=== PATIENT | male | born 1965 | race Caucasian/White ===

== ENCOUNTER 2024-07-14 18:29 | Inpatient (IN) | payer MEDICARE, SELFPAY ==
[2024-07-14] VITALS (12 sets, daily range): BP systolic 93–140; BP diastolic 55–73; PULSE 77–100; RESP 16–21; TEMP 36.9–38.2; O2SAT 85–98
--- NOTE | ~2024-07-14 | XR_ITS ---
CHEST RADIOGRAPH CLINICAL HISTORY: sob . COMPARISON: None available TECHNIQUE: Single portable view of the chest. FINDINGS The cardiomediastinal silhouette is unremarkable. Increased interstitial markings are identified bilaterally, findings suggesting mild pulmonary vascul ar congestion. The remainder of the lungs are clear. IMPRESSION: Mild pulmonary vascular congestion without focal infiltrate or effusion. Reviewed, dictated and finalized at location A.
--- NOTE | ~2024-07-14 | CT_ITS ---
CT chest abdomen pelvis w con Ordering provider: Bony Barbosa MD History: 59 years Male with . Sepsis, Hypoxic resp failure . Comparison: None. Technique: CT chest with IV contrast. CT abdomen and pelvis CT abdomen and pelvis with IV and with or al contrast. Radiation reduction technique utilized.The dose-length product was 2348.8 mGy-cm. 100 mL Omnipaque 350 was given IV. FINDINGS: CHEST: --VISUALIZED THORACIC INLET: Normal. --MEDIASTINUM: Aorta/coronary arteries: Mild atheromatous disease. Heart/other: The heart is not enlarged. Lymph nodes: No mediastinal or hilar adenopathy. Paratracheal lymph node is seen measuring 1.5 cm. Sm all precarinal lymph nodes are noted. Calcified right hilar lymph nodes. Narrowing of the tracheobronchial tree is seen suggestive of tracheobronchomalacia. Tracheobronchomal acia. --LUNGS: Left basilar pneumonia is noted with minimal effusion. Minimal infiltrate in the right lung base posteriorly. No pulmonary nodules or masses. No effusions. No pneumothorax. --MUSCULOSKELETAL: Soft tissues: Soft tissue density is seen medial to the left humerus shaft measuring 1.6 x 5.8 cm. Shauna int effusion is possible. Further evaluation advised. Otherwise, The superficial soft tissues are nor mal. Bones: Age appropriate degenerative changes of the spine. No suspicious bony lytic or sclerotic lesio ns. Bilateral sacroiliitis. ABDOMEN/PELVIS: --MUSCULOSKELETAL: Bones: Age appropriate degenerative changes of the spine. No suspicious bony lytic or sclerotic lesio ns. Left sacroiliitis. Superficial soft tissues: Right fat-containing inguinal hernia. Otherwise, The superficial soft tissu es are normal. --UPPER ABDOMINAL ORGANS: Liver: Normal. Gallbladder: Contracted. Spleen: Normal. Benign calcifications. Stomach/duodenum: Normal. Pancreas: Atrophic. Adrenals: Normal. Kidneys: Normal. --PELVIC ORGANS: The bladder is normal. No bladder stones. --BOWEL AND MESENTERY: Colon: No evidence of diverticulitis. Fecal material is seen in the right side of the colon.. Normal appendix. Small Bowel: Normal. No obstruction. Peritoneum/mesentery: No free air or free fluid. No mesenteric lymphadenopathy. --RETROPERITONEUM: Mild atheromatous disease of the abdominal aorta. No retroperitoneal lymphadenop athy. IMPRESSION: CHEST: 1. No evidence of pulmonary embolism. 2. Left basilar pneumonia. Left minimal pleural effusion. Minimal right base pneumonia. 3. Slightly enlarged lymph nodes in the paratracheal and precarinal area. 4. Tracheobronchomalacia. ABDOMEN/PELVIS: 1. No evidence of appendicitis, diverticulitis or intestinal obstruction. 2. Atrophic pancreas. 3. Right inguinal hernia with fat content. Reviewed, dictated and finalized at location A. IMPRESSION: CHEST: 1. No evidence of pulmonary embolism. 2. Left basilar pneumonia. Left minimal pleural effusion. Minimal right base p neumonia. 3. Slightly enlarged lymph nodes in the paratracheal and precarinal area. 4. Tracheobronchomalacia. ABDOMEN/PELVIS: 1. No evidence of appendicitis, diverticulitis or intestinal obstruction. 2. Atrophic pancreas. 3. Right inguinal hernia with fat content.
--- NOTE | ~2024-07-14 | XR_ITS ---
EXAMINATION: XR chest 1V portable Exam Date/Time: 07/15/2024 17:45 CDT HISTORY: Witnessed choking episode Comparison: 07/14/2024, x-ray chest and CT cap. RESULT: Lines, tubes, and devices: None. Lungs and pleura: Slightly low volumes with crowding. Persistent patchy airspace disease in the left mid and lower lung and to a much lesser extent in the medial right lower lung. Cardiomediastinal silhouette: Stable. Other: No acute osseous or upper abdominal finding. IMPRESSION: Unchanged pulmonary opacities, likely representing bilateral pneumonia, worse on the left, with a pos sible component of aspiration. Reviewed, dictated and finalized at location K. IMPRESSION: Unchanged pulmonary opacities, likely representing bilateral pneumonia, worse o n the left, with a possible component of aspiration.
--- NOTE | ~2024-07-14 | XR_ITS ---
Portable chest x-ray Comparison: 07/15/2024 Clinical History: Pneumonia Findings: There is central congestive change and probable mild bibasilar pulmonary edema, or possibl y pneumonia. Cardiomediastinal silhouette is stable. Bones and soft tissues are unremarkable. Impression: Probable mild bibasilar pulmonary edema. Correlate clinically for pneumonia. Reviewed, dictated and finalized at [facility]. Impression: Probable mild bibasilar pulmonary edema. Correlate clinically for pneumonia.
--- NOTE | 2024-07-14 18:41 | ECG_ITS ---
Test Date: 2024-07-14 19:55:21 Measurements Intervals [place] Rate: 91 P: 60 [place]: 142 QRS: 59 QRSD: 86 T: 52 QT: 335 QTc: 412 Interpretive Statements SINUS RHYTHM NONSPECIFIC T-WAVE ABNORMALITY Electronically Signed On 07-16-2024 13:53:40 CDT by Ishan Araiza D.O
--- NOTE | 2024-07-14 18:44 | ED.SOB ---
HPI - SOB/Dyspnea General Chief Complaint: Shortness of Breath/Dyspnea <Joao Peralta MD - Last Filed: 07/14/24 18:47> Stated Complaint: dyspnea <Joao Peralta MD - Last Filed: 07/14/24 18:47> Time Seen by Provider: 07/14/24 18:38 <Joao Peralta MD - Last Filed: 07/14/24 18:47> Source: patient and EMS <Joao Peralta MD - Last Filed: 07/14/24 18:47> Mode of arrival: EMS <Joao Peralta MD - Last Filed: 07/14/24 18:47> Limitations: no limitations <Joao Peralta MD - Last Filed: 07/14/24 18:47> History of Present Illness HPI Narrative: 59-year-old with the history Parkinson's, schizophrenia, hypertension, morbid obesity was brought in from nursing my office with a complaint of shortness of for past 2 days. Patient states he is feeling much better upon arrival to the ER. I spoke with EMS he was having bilateral using was given a neb treatment. Patient denies any fever chills. Has cough is a little fluid no history of nausea or vomiting. <Joao Peralta MD - Last Filed: 07/14/24 18:47> MD elicited complaint: shortness of breath and cough <Joao Peralta MD - Last Filed: 07/14/24 18:47> Onset (ago): day(s) (2) <Joao Peralta MD - Last Filed: 07/14/24 18:47> Timing: constant <Joao Peralta MD - Last Filed: 07/14/24 18:47> Severity: moderate <Joao Peralta MD - Last Filed: 07/14/24 18:47> Exacerbating factors: nothing <Joao Peralta MD - Last Filed: 07/14/24 18:47> Relieving factors: oxygen <Joao Peralta MD - Last Filed: 07/14/24 18:47> Associated symptoms: denies other symptoms <Joao Peralta MD - Last Filed: 07/14/24 18:47> Related Data Allergies/Adverse Reactions: Allergies Allergy/AdvReac Type Severity Reaction Status Date / Time hydroxyzine Allergy RASH Verified 07/14/24 18:59 <Joao Peralta MD - Last Filed: 07/14/24 18:47> Review of Systems Review of Systems: All systems reviewed & are unremarkable except as noted in HPI and below <Joao Peralta MD - Last Filed: 07/14/24 18:47> Constitutional: Constitutional: Reports no additional constitutional complaints <Joao Peralta MD - Last Filed: 07/14/24 18:47> Eyes: Eyes: Reports no additional eye complaints <Joao Peralta MD - Last Filed: 07/14/24 18:47> ENT: Reports system reviewed and no additional complaints, except as documented <Joao Peralta MD - Last Filed: 07/14/24 18:47> Cardiovascular: Cardiovascular: Reports no additional cardiovascular complaints <Joao Peralta MD - Last Filed: 07/14/24 18:47> Respiratory: Respiratory: Reports as per HPI <Joao Peralta MD - Last Filed: 07/14/24 18:47> Gastrointestinal: Gastrointestinal: Reports no additional gastrointestinal complaints <Joao Peralta MD - Last Filed: 07/14/24 18:47> Genitourinary: Genitourinary: Reports no additional male genitourinary complaints <Joao Peralta MD - Last Filed: 07/14/24 18:47> Musculoskeletal: Musculoskeletal: Reports no additional musculoskeletal complaints <Joao Peralta MD - Last Filed: 07/14/24 18:47> Neurologic: Reports system reviewed and no additional complaints, except as documented <Joao Peralta MD - Last Filed: 07/14/24 18:47> Exam Narrative: GENERAL: Well-appearing, obese and in no acute distress. HEAD: Normocephalic, atraumatic. EYES: PERRLA and EOMI. ENT: Nares clear, no rhinorrhea or epistaxis. Mucous membranes moist. NECK: Supple. CHEST: Bilateral coarse breath sounds. No respiratory distress. HEART: Regular rate and rhythm. No murmur heard. Normal peripheral pulses. ABDOMEN: Soft, nontender, nondistended, normal active bowel sounds. EXTREMITIES: Normal range of motion. No edema. SKIN: Warm, dry, no rash. NEURO: No focal deficits. Alert and oriented PSYCH: Normal mood and affect. <Joao Peralta MD - Last Filed: 07/14/24 18:47> Course Course Emergency Course: ZYCH 0000: Patient signed out completion of his workup. After arrival patient developed a fever his blood pressures became soft. 30 cc/kilogram bolus and started on broad-spectrum antibiotics was workup was being completed. Workup significant for pneumonia. Patient was falling asleep and when every fell asleep he was desaturating despite 6lpm NC. Possibly combination of pneumonia/ obstructive sleep apnea. He was placed on BiPAP. Patient will be admitted hospital for further management. <Bony Barbosa MD - Last Filed: 07/15/24 00:04> Vital Signs Vital signs: Vital Signs Temperature 99.6 F 07/14/24 18:37 Pulse Rate 100 07/14/24 18:37 Respiratory Rate 21 H 07/14/24 18:37 Blood Pressure 140/73 07/14/24 18:37 Pulse Oximetry 85 L 07/14/24 18:37 Oxygen Delivery Room Air 07/14/24 18:37 Temperature 98.4 F 07/14/24 22:23 Pulse Rate 77 07/14/24 22:23 Respiratory Rate 16 07/14/24 23:51 Blood Pressure 119/72 07/14/24 22:23 Pulse Oximetry 96 07/14/24 23:51 Oxygen Delivery BiPAP 07/14/24 23:51 Oxygen Flow Rate 6 07/14/24 19:29 Fraction of Inspired Oxygen 44 07/14/24 21:23 <Joao Peralta MD - Last Filed: 07/14/24 18:47> Vital Signs Temperature 99.6 F 07/14/24 18:37 Pulse Rate 100 07/14/24 18:37 Respiratory Rate 21 H 07/14/24 18:37 Blood Pressure 140/73 07/14/24 18:37 Pulse Oximetry 85 L 07/14/24 18:37 Oxygen Delivery Room Air 07/14/24 18:37 Temperature 98.4 F 07/14/24 22:23 Pulse Rate 77 07/14/24 22:23 Respiratory Rate 16 07/14/24 23:51 Blood Pressure 119/72 07/14/24 22:23 Pulse Oximetry 96 07/14/24 23:51 Oxygen Delivery BiPAP 07/14/24 23:51 Oxygen Flow Rate 6 07/14/24 19:29 Fraction of Inspired Oxygen 44 07/14/24 21:23 <Bony Barbosa MD - Last Filed: 07/15/24 00:04> MDM - SOB/Dyspnea Lab Data Result diagrams: 07/14/24 19:44 07/14/24 19:44 <Joao Peralta MD - Last Filed: 07/14/24 18:47> Labs: Lab Results 07/14/24 07/14/24 Range/Units 19:44 20:02 WBC 22.7 H (4.5-10.0) K/mm3 RBC 3.21 L (4.6-6.20) M/mm3 Hgb 9.8 L (14.0-18.0) g/dL Hct 31.2 L (42.0-52.0) % MCV 97.2 (80-100) fl MCH 30.5 (26-34) pg MCHC 31.4 L (32-36) g/dl RDW 12.9 (11.5-14.5) % Plt Count 216 (150-375) k/mm3 MPV 12.4 H (7.4-10.4) fl Immature Gran % (Auto) Not Reportable Neut % (Auto) Not Reportable Lymph % (Auto) Not Reportable [place] % (Auto) Not Reportable Eos % (Auto) Not Reportable Baso % (Auto) Not Reportable Lymph # (Auto) Not Reportable [place] # (Auto) Not Reportable Eos # (Auto) Not Reportable Baso # (Auto) Not Reportable Abs Immat Gran (auto) Not Reportable Absolute Neuts (auto) Not Reportable Absolute Nucleated RBC Not Reportable Total Counted 100 Neutrophils % (Manual) 70 (46-73) % Band Neutrophils % 11 H (0-6) % Lymphocytes % (Manual) 3.0 L (18-44) % Monocytes % (Manual) 14 H (3-9) % Eosinophils % (Manual) 2 (0-4) % Nucleated RBC % Not Reportable Abs Neuts (Manual) 18.38 H (1.3-6.7) K/mm3 Abs Lymphs (Manual) 0.68 L (1.1-4.5) K/mm3 Abs Monocytes (Manual) 3.17 H (0.1-0.90) K/mm3 Absolute Eos (Manual) 0.45 (0.02-0.50) K/mm3 Platelet Estimate Adequate (Adequate) Hypochromasia 1+ Schistocytes None seen PT 14.8 H (11.1-14.7) Seconds INR 1.1 APTT 31.7 (22.3-36.8) Seconds Sodium 131 L (137-145) mmol/L Potassium 3.8 (3.4-5.0) mmol/L Chloride 94 L (98-107) mmol/L Carbon Dioxide 30 (22-30) mmol/L Anion Gap 7 (4-12) mmol/L BUN 22 H (9-20) mg/dL Creatinine 1.39 H (0.7-1.3) mg/dL Estim Creat Clear Calc Not Reportable Estimated GFR 52 L (59 - ) Glucose 163 H (65-110) mg/dL Lactic Acid 0.9 (0.7-2.0) mmol/L Calcium 8.1 L (8.4-10.2) mg/dL Total Bilirubin 0.3 (0.2-1.3) mg/dL AST 24 (17-59) U/L ALT 31 (6-50) U/L Alkaline Phosphatase 92 (38-126) U/L Troponin I < 0.012 (0.000-0.034) ng/mL NT-Pro-B Natriuret Pep 542 H (19.9-100) pg/mL Total Protein 7.0 (6.3-8.2) g/dL Albumin 3.3 L (3.5-5.1) g/dL Nasal MRSA (PCR) Not detected (NOT DETECTE) Influenza A (RT-PCR) Negative (Negative) Influenza B (RT-PCR) Negative (Negative) RSV (RT-PCR) Negative (Negative) SARS-CoV-2 RNA (RT-PCR) Negative Negative (Negative) <Joao Peralta MD - Last Filed: 07/14/24 18:47> Lab Results 07/14/24 07/14/24 Range/Units 19:44 20:02 WBC 22.7 H (4.5-10.0) K/mm3 RBC 3.21 L (4.6-6.20) M/mm3 Hgb 9.8 L (14.0-18.0) g/dL Hct 31.2 L (42.0-52.0) % MCV 97.2 (80-100) fl MCH 30.5 (26-34) pg MCHC 31.4 L (32-36) g/dl RDW 12.9 (11.5-14.5) % Plt Count 216 (150-375) k/mm3 MPV 12.4 H (7.4-10.4) fl Immature Gran % (Auto) Not Reportable Neut % (Auto) Not Reportable Lymph % (Auto) Not Reportable [place] % (Auto) Not Reportable Eos % (Auto) Not Reportable Baso % (Auto) Not Reportable Lymph # (Auto) Not Reportable [place] # (Auto) Not Reportable Eos # (Auto) Not Reportable Baso # (Auto) Not Reportable Abs Immat Gran (auto) Not Reportable Absolute Neuts (auto) Not Reportable Absolute Nucleated RBC Not Reportable Total Counted 100 Neutrophils % (Manual) 70 (46-73) % Band Neutrophils % 11 H (0-6) % Lymphocytes % (Manual) 3.0 L (18-44) % Monocytes % (Manual) 14 H (3-9) % Eosinophils % (Manual) 2 (0-4) % Nucleated RBC % Not Reportable Abs Neuts (Manual) 18.38 H (1.3-6.7) K/mm3 Abs Lymphs (Manual) 0.68 L (1.1-4.5) K/mm3 Abs Monocytes (Manual) 3.17 H (0.1-0.90) K/mm3 Absolute Eos (Manual) 0.45 (0.02-0.50) K/mm3 Platelet Estimate Adequate (Adequate) Hypochromasia 1+ Schistocytes None seen PT 14.8 H (11.1-14.7) Seconds INR 1.1 APTT 31.7 (22.3-36.8) Seconds Sodium 131 L (137-145) mmol/L Potassium 3.8 (3.4-5.0) mmol/L Chloride 94 L (98-107) mmol/L Carbon Dioxide 30 (22-30) mmol/L Anion Gap 7 (4-12) mmol/L BUN 22 H (9-20) mg/dL Creatinine 1.39 H (0.7-1.3) mg/dL Estim Creat Clear Calc Not Reportable Estimated GFR 52 L (59 - ) Glucose 163 H (65-110) mg/dL Lactic Acid 0.9 (0.7-2.0) mmol/L Calcium 8.1 L (8.4-10.2) mg/dL Total Bilirubin 0.3 (0.2-1.3) mg/dL AST 24 (17-59) U/L ALT 31 (6-50) U/L Alkaline Phosphatase 92 (38-126) U/L Troponin I < 0.012 (0.000-0.034) ng/mL NT-Pro-B Natriuret Pep 542 H (19.9-100) pg/mL Total Protein 7.0 (6.3-8.2) g/dL Albumin 3.3 L (3.5-5.1) g/dL Nasal MRSA (PCR) Not detected (NOT DETECTE) Influenza A (RT-PCR) Negative (Negative) Influenza B (RT-PCR) Negative (Negative) RSV (RT-PCR) Negative (Negative) SARS-CoV-2 RNA (RT-PCR) Negative Negative (Negative) <Bony Barbosa MD - Last Filed: 07/15/24 00:04> ABG Data ABG results: 07/14/24 18:52 Puncture Site Right brachial ABG pH 7.400 ABG pCO2 42.8 ABG pO2 68.3 L ABG PO2/FiO2 Ratio 1.71 ABG HCO3 25.9 ABG O2 Saturation 93.6 L ABG O2 Content 13.4 L ABG Base Excess 1.0 A-a Gradient 167.7 Oxyhemoglobin 93.0 Total Hemoglobin 10.2 L O2 Delivery Device Nasal cannula O2 Liters/Min 5.0 FiO2 40 <Joao Peralta MD - Last Filed: 07/14/24 18:47> 07/14/24 18:52 Puncture Site Right brachial ABG pH 7.400 ABG pCO2 42.8 ABG pO2 68.3 L ABG PO2/FiO2 Ratio 1.71 ABG HCO3 25.9 ABG O2 Saturation 93.6 L ABG O2 Content 13.4 L ABG Base Excess 1.0 A-a Gradient 167.7 Oxyhemoglobin 93.0 Total Hemoglobin 10.2 L O2 Delivery Device Nasal cannula O2 Liters/Min 5.0 FiO2 40 <Bony Barbosa MD - Last Filed: 07/15/24 00:04> Critical Care Time Critical Care Time Critical Care Time: Yes <Bony Barbosa MD - Last Filed: 07/15/24 00:04> Total Critical Care Time: 35 <Bony Barbosa MD - Last Filed: 07/15/24 00:04> Discharge Plan Discharge Clinical Impression: Pneumonia, Hypoxic respiratory failure <Joao Peralta MD - Last Filed: 07/14/24 18:47> Patient Disposition: Still a Patient <Joao Peralta MD - Last Filed: 07/14/24 18:47> Condition: Stable <Joao Peralta MD - Last Filed: 07/14/24 18:47> Patient Language: [place]e <Joao Peralta MD - Last Filed: 07/14/24 18:47> Follow-up/Referrals: Ankur,MD Shemar [Primary Care Provider] - <Joao Peralta MD - Last Filed: 07/14/24 18:47>
[2024-07-14 19:07] LABS: Alveolar/Arterial O2 Gradient 167.7 mmHg; Fractional Inspired Oxygen 40 %; HCO3 ABG 25.9 mEq/l (22.0-26.0); Oxygen Content ABG 13.4 %vol (16.0-22.0); Oxygen Saturation ABG 93.6 % (95.0-100.0); PCO2 ABG 42.8 mmHg (35.0-45.0); PO2 ABG 68.3 mmHg (80.0-100.0); PO2 FiO2 Ratio Arterial Blood 1.71 %; Total Hemoglobin 10.2 g/dL (12.0-18.0)
[2024-07-14 19:08] LABS: Device NASAL CANNULA; Site Drawn RIGHT BRACHIAL
--- OUTSIDE RECORDS SUMMARY | 2024-07-14 19:40 | XMS_ITS | Referral Summary ---
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 Name Role Phone Shemar Pascual MD Primary Care Provider [phone] Stephon Caputo MD Unavailable [phone] Allergies Active Allergy Reactions Criticality Noted Date Comments Hydroxyzine Other (See comments) Low 11/24/2022 Per mother causes patient to have tremors Medications acetaminophen (TYLENOL) 325 mg tabletIndications :Pain Take 1 tablet (325 mg total) by mouth as needed Active aspirin 81 mg chewable tabletIndications :Myocardial Reinfarction Prevention Take 1 tablet (81 mg total) by mouth every morning Active metoprolol XL (TOPROL-XL) 25 mg extended release tabletIndications :hypertension Take 1 tablet (25 mg total) by mouth every morning 9 Active atorvastatin (LIPITOR) 20 mg tabletIndications :hyperlipidemia Take 1 tablet (20 mg total) by mouth nightly 1 Active cholecalciferol (VITAMIN D-3) 5,000 unit capsuleIndication s:Vitamin D Deficiency Take 1 capsule (5,000 Units total) by mouth every morning Active divalproex ER (DEPAKOTE ER) 500 mg 24 hr tabletIndications :Behavioral agitation Take 3 tablets (1,500 mg total) by mouth nightly 90 tablet 3 Active levothyroxine (SYNTHROID) 125 mcg tabletIndications :hypothyroidism Take 1 tablet (125 mcg total) by mouth line up examiner before breakfast 30 tablet 3 Active losartan (COZAAR) 50 mg tabletIndications :hypertension Take 1 tablet (50 mg total) by mouth 2 (two) times a day 60 tablet 3 Active metFORMIN (GLUCOPHAGE) 500 mg tabletIndications :type 2 diabetes mellitus Take 1 tablet (500 mg total) by mouth 2 (two) times a day 60 tablet 3 Active lithium ER (LITHOBID) 300 mg CR tabletIndications :Mood stability Take 2 tablets (600 mg total) by mouth nightly 60 tablet 3 Active OLANZapine (ZyPREXA) 10 mg tabletIndications :Schizophrenia Take 1 tablet (10 mg total) by mouth daily after lunch AND 0.5 tablets (5 mg total) daily with dinner AND 1 tablet (10 mg total) nightly. 75 tablet 1 3 Active OLANZapine (ZyPREXA) 5 mg tabletIndications :Schizophrenia Take 1 tablet (5 mg total) by mouth 3 (three) times a day as needed (Agitation) 90 tablet 1 3 Active risperiDONE (RisperDAL) 1 mg tablet Take 1 tablet (1 mg total) by mouth 2 (two) times a day 4 Active Active Problems Problem Noted Date Diagnosed Date Intellectual developmental disorder 11/25/2022 Assessment & Plan (11/27/2022 12:34 PM CDT): See plan above Assessment & Plan (11/25/2022 10:10 PM CDT): Outpatient followup HTN (hypertension) 11/25/2022 Assessment & Plan (11/25/2022 10:11 PM CDT): Will continue home losartan & metop Hypothyroidism, unspecified 11/25/2022 Assessment & Plan (11/25/2022 10:11 PM CDT): Continue home levothyroxine 125; TSH wnl on admission CAD (coronary artery disease) 11/25/2022 Assessment & Plan (11/25/2022 10:11 PM CDT): Continue home ASA & lipitor & metop DM2 (diabetes mellitus, type 2) 11/25/2022 Assessment & Plan (11/25/2022 10:12 PM CDT): Continue home metformin. A1c in 2020 was ok. He comes from an OSH so I am unable to add on labs, and it is likely not worth causing a lab draw just for an A1c. This can be followed as an outpatient as his BG has been ok. 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 This morning he is calm and cooperative without complaints. He has no psychotic or mood symptoms. - Depakote ER 1500mg daily for aggression - Level was 43 at 1000mg daily; recheck level later this week - [place] 600mg daily for mood stability, level was 0.5 - [id number] BID at lunch and bed time and 5mg daily at dinner time for mood stability - Targeting symptoms in afternoon/evening - Focus on coping skills in a controlled setting - SW to assist with Dispo back to SNF - Working with guardian for care plan Primary hypothyroidism 11/29/2020 Well child examination 11/29/2020 Uncontrolled stage 2 hypertension 11/29/2020 Type 2 diabetes mellitus with diabetic nephropat hy 11/29/2020 Suspected 2019-nCoV infection 11/29/2020 Rotator cuff dysfunction 11/29/2020 Nontraumatic complete tear of left rotator cuff 11/29/2020 Overview (11/29/2020): Added automatically from request for surgery [id number] Abnormal white blood cell (WBC) count 08/08/2020 Closed dislocation of left shoulder 06/11/2020 Overview (06/11/2020): Added automatically from request for surgery [id number] Chronic left shoulder pain 01/19/2020 Community acquired pneumonia, bilateral 04/14/20 19 Encephalopathy 04/14/2019 Problem 03/28/2013 Immunizations Immunization Administration Dates Next Due Influenza, Quadrivalent, Spl it, Preservative Free, Intramuscular 02/06/2019 Influenza, Unspecified 03/27/2013 Pfizer SARS-CoV-2 Monovalent Vaccination (12+ Yrs) PURPLE 09/12/2020,05/31/2020 Social History Tobacco Use Types Packs/Day Years Used Date Smoking Tobacco: Never Smokeless Tobacco: Never Alcohol Use Standard Drinks/Week Comments Yes 0 (1 standard drink = 0.6 oz pur e alcohol) Humiliation, Afraid, Rape, and Kick questionnair e Answer Date Recorded Within the last year, have y ou been afraid of your partner or ex-partner? No 11/25/2022 Within the last year, have y ou been humiliated or emotionally abused in other ways by your partner or ex-partner? No Within the last year, have y ou been kicked, hit, slapped, or otherwise physically hurt by your partner or ex-partner? No 11/25/2022 Within the last year, have y ou been raped or forced to have any kind of sexual activity by your partner or ex-partner? No 11/25/2022 Social Connection and Isolat ion Panel [NHANES] Answer Date Recorded In a typical week, how many times do you talk on the phone with family, friends, or neighbors? More than three times a week 11/25/2022 How often do you get togethe r with friends or relatives? More than three times a week 11/25/2022 How often do you attend chur or advent services? Never 11/25/2022 Do you belong to any clubs o r organizations such as buddhist groups, unions, fraternal or athletic groups, or school groups? No 11/25/2022 How often do you attend meet ings of the clubs or organizations you belong to? Never 11/25/2022 Are you , , di vorced, , never , or living with a partner? Never 11/25/2022 AUDIT-C Answer Date Recorded Q1: How often do you have a drink containing alc ohol? Never 12/27/2020 Average Number of Drinks Not on file 021 Q3: How often do you have si x or more drinks on one occasion? Never 12/27/2020 Overall Financial Resource Strain (CARDIA) Answe r Date Recorded How hard is it for you to pa y for the very basics like food, housing, medical care, and heating? Not hard at all 11/25/2022 [facility] - Occupational Stress Questionnaire Answer Date Recorded Do you feel stress - tense, restless, nervous, or anxious, or unable to sleep at night because your mind is troubled all the time - these days? Patient declined 11/25/2022 Exercise Vital Sign Answer Date Recorde d On average, how many days pe r week do you engage in moderate to strenuous exercise (like a brisk walk)? Patient declined On average, how many minutes do you engage in exercise at this level? Patient declined 11/25/2022 Hunger Vital Sign Answer Date Recorded Within the past 12 months, y ou worried that your food would run out before you got the money to buy more. Never true 11/26/19 23 Within the past 12 months, t he food you bought just didn't last and you didn't have money to get more. Never true 11/25/2022 PRAPARE - Transportation Answer Date Re corded In the past 12 months, has l ack of transportation kept you from medical appointments or from getting medications? No 11/01 In the past 12 months, has l ack of transportation kept you from meetings, work, or from getting things needed for daily living? No 11/25/2022 Housing Stability Vital Sign Answer Taj e Recorded In the last 12 months, was t here a time when you were not able to pay the mortgage or rent on time? No 11/25/2022 In the last 12 months, how many places have you lived? 1 11/25/2022 In the last 12 months, was t here a time when you did not have a steady place to sleep or slept in a intermediate (including now)? No 11/25/2022 Personal Safety Answer Date Recorded Have you ever been in or are you currently in a harmful physical or emotional relationship or is someone making you feel afraid or unsafe? 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 Gender Identity Male 02/16/2020 11:08 AM CDT Sexual Orientation Straight 02/16/2020 11 :08 AM CDT Last Filed Vital Signs Vital Sign Reading Time Taken Comments Blood Pressure 117/81 12/05/2023 8:00 AM CDT Pulse 95 12/05/2023 8:00 AM CDT Temperature 36.7 C (98 F) 12/05/2023 6:35 AM CDT Respiratory Rate 18 12/05/2023 8:00 AM CDT Oxygen Saturation 94% 12/05/2023 8:00 AM CDT Inhaled Oxygen Concentration - - Weight 125 kg (275 lb 9.2 oz) 12/05/2023 6:35 AM CDT Height 177.8 cm (5' 10 ) 12/05/2023 6:35 AM CDT Body Mass Index 39.54 12/05/2023 6:35 AM CDT Plan of Treatment Not on file Procedures Procedure Name Priority Date/Time Associated Diagnosis Comments EGFR STAT 12/05/2023 6:49 AM CDT POCT HEMOGLOBIN A1C Routine 12/27/2020 2 :28 PM CDT from Last 3 Months or Most Recently Relevant to Health Maintenance Results * eGFR (12/05/2023 6:49 AM CDT) eGFR 88 >=60 mL/min/1. 73 m2 Comment: Interpretive Data Reference Interval Normal >/= 90 mL/min/1.73m2 Mildly decreased* 60 - 89 mL/min/1.73m2 Mildly to moderately decreased 45 - 59 mL/min/1.73m2 Moderately to severely decreased 30 - 44 mL/min/1.73m2 Severely decreased 15 - 29 mL/min/1.73m2 Kidney Failure < 15 mL/min/1.73m2 *Relative to young adult level Estimated glomerular filtration rate is determined by the 2020 CKD-EPI equation recommended by the National Kidney Foundation (A Unifying Approach to GFR Estimation: Recommendations of the NKF-ASK Task Force on Reassessing the Inclusion of Race in Diagnosing Kidney Disease, JASN 2020). The CKD-EPI equation should not be used for patients with unstable renal function and has not been validated in children and those over 70. Current interpretive data was last reviewed 2021. Testing performed by: [facility], [address] [place] [address]., [id number] Blood 12/05/2023 6:49 AM CDT 12/05/2023 6:51 AM CDT us Jos Azul MD LAB BLOOD ORDERABLE S Final Result Performing Organization Address [facility] Co de Phone Number [facility] [address] [facility] Department [place] [address] * POCT hemoglobin A1c (12/27/2020 2:28 PM CDT) Hgb A1C, POC 6.0 4.0 - 6.0 % [facility] Est Average Gluc POC 126 mg/dL [facility] Comment: The ADA recommends reporting an estimated Average Glucose (eAG) with all Hemoglobin A1c results using the equation derived from a study of 507 normal and diabetic adults. Minority populations were underrepresented and children were not included. (Diabetes Care 31:8101-8777, 2008). The eAG is not equivalent to a fasting glucose. Blood 12/27/2020 2:28 PM CDT 12/27/2020 2:28 PM CDT Guillermo Tello MD POINT OF CARE TEST OR DERABLES Final Result Performing Organization Address City/[facility]/ZIP Co de Phone Number [facility] Department [place] [address] from Last 3 Months or Most Recently Relevant to Health Maintenance Insurance MEDICARE [facility] MEDICARE [facility] MEDICARE [facility] Advance Directives For more information, please contact: [phone] Documents on File Type Date Recorded Patient Refueler Expl anation ADVANCE DIRECTIVE 12/06/2023 12:33 PM POLST - Phys Order for PT Preferences ADVANCE DIRECTIVE 11/16/2019 12:00 AM POLS T - Phys Order for PT Preferences * Full Code (Latest Code Status on File) Date Activated Date Inactivated Comments 11/25/2022 12:29 PM 12/07/2022 2:55 PM Care Teams Heavy Equipment Plumbing Supervisor Relationship Specialty Start Date End Date Shemar Pascual MD [address] [facility] [address] [place] [address] PCP - General 09/19/19 Stephon Caputo MD [address] [place] [address] Referring Physician Psychiatry 09/04/20
--- OUTSIDE RECORDS SUMMARY | 2024-07-14 19:40 | XMS_ITS ---
Author Organization [facility] Address [address] [address] Care Team Providers Care Senior Energy Trader Name Role Phone Shemar Pascual M.D. Primary Care Provider Yonathan Oneal [phone] REASON FOR VISIT DFC (Diabetic foot care) Encounters Encounter Location Date Provider Diagnosis [facility] [address] [address] 08/12/2023 Yonathan Ellington Plan Of Treatment No Information Progress Notes * Armen RYANDOB:1965 (59 yo M)Acc No.[id number]:08/12/2023 Progress Note Patient: Armen STRANGE Provider: Amelia Ellington DPM :1965 A ge:58 Y S ex:Male Date:08/12/2023 Address:[address] [place], [place] [id number] Pcp:Shemar Pascual M.D. Subjective: * Chief Complaints: * 1 . DFC (Diabetic foot care). * Medical History: Objective: * Vitals: Assessment: Plan: * Treatment: * Images: * Electronic signature of Lacy Ellington DPM on 07/14/2024 at 07:40 PM CDT Sign off status: Pending * Provider: Amelia Ellington DPM Date: 0 08/12/2023 Generated for Ed ng/Faxing/eTransmitting on: 07/14/2024 07:40 PM CDT
--- OUTSIDE RECORDS SUMMARY | 2024-07-14 19:40 | XMS_ITS | Patient Health Record ---
Author Organization 1 OF Amelia morales [facility] Address [address] [facility] [address] [place] [address] Care Team Providers Care Wood Type Finisher Name Role Phone Shemar Pascual M.D. Primary Care Provider Yonathan Oneal Unavailable Allergies No Known Allergies Reason For Referral No Information Medications Medication SIG (Take, Route, Frequency, Duration) Notes Start Date End Date Status Divalproex Sodium ER Active Depakote ER Active [place] Carbonate ER 300 MG Oral for 30 Days Active OLANZapine Active Vitamin D Active Metoprolol Succinate ER 25 MG Oral for 30 Days Active Haloperidol Active Furosemide 20 MG Oral for 21 Days Active [place] Carbonate Ac tive Aspirin Active Glucosamine Active busPIRone HCl Active Metformin & Diet Manage Prod Active predniSONE 10 MG Take specified quant ity once each day as directed per instructions Orally Once a day Active Metoprolol & Diet Manage Prod Active Losartan Potassium A ctive Atorvastatin Calcium Active hydrOXYzine HCl Acti ve Levothyroxine Sodium Active Social History Tobacco Use: Social History Observation Description Date Details (start date - stop date) Never Smoker NA - NA Tobacco Use/Smoking Question Answer Notes Are you a nonsmoker Problems Problem Type SNOMED Code ICD Code Onset Dates Problem Status W/U Status Risk Notes Problem 73630461 Type 2 diabetes mellitus with other diabetic neurological complication (E11.49) Active confirmed Problem 523255731 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) Active confirmed Problem 155663168 Pronation deformity of right foot (M21.6X1) Active confirmed Problem 58820251 Gait instability (R26.81) Active confirmed Problem Diabetic peripheral neuropathy (755405525) Diabetic peripheral neuropathy (E11.42) Active confirmed Problem 26176885 Parkinsons (G20) Active confirmed Problem 619116333 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 Plan Of Treatment No Information Insurance Providers Payer Name Payer Address Payer Phone Subscriber Number Group Number Insured Name Patient Relationship to Insured Coverage Start Date Coverage End Date Medicare [address] [facility] [place] [id number] Armen Ryan Self - patient is the insured [facility] and [facility] [address] [place] [address] [id number] Armen Ryan Self - patient is the insured Medical (General) History Medical History History ICD Code Diabetes Anxiety Disorder Arthritis Gout Hyperlipidema Schizophrenia Surgical History Surgery Date(Month/Year)
--- OUTSIDE RECORDS SUMMARY | 2024-07-14 19:40 | XMS_ITS ---
Author Organization [facility] [employer] [facility] Care Team Providers Care Packager Name Role Phone Campbell Fernandez Unavailable Unavailable Cedrick Montana Unavailable Unavailable Allergies and adverse reactions No Known Allergies Care Team Name Role Address Phone Organization Dates Arif Habib Attending Physician [address], [address], [place] (Office): : : [facility] 01/22/2022 - 02/04/2022 Cedrick Montana Attending Physician [address] [place], [address], [place] (Office): : : [facility] 01/22/2022 - 02/04/2022 Goals Section Description Status Target Date Comfort level will stay belo w his/her acceptable pain level thru next review. Active 03/09/2022 Guardian will inform nursing and/or director of social media marketing of desire for discharge thru next review date. Active 03/09/2022 Tanya falls/injuries will be minimized through management of risk factors thru next review. Active 03/09/2022 Tanya will attend group therapy thru next review date. Active 03/09/2022 Tanya will be free from compl ications of medication thru next review date. Active 03/09/2022 Tanya will behave in a manner consistent with resident conduct policies through the next review. Active 03/09/2022 Tanya will exhibit repetitive statements/questions less then four times a day thru next review date. Active 03/09/2022 Tanya will express thoughts a nd feelings in a coherent, logical, goal-orientated manner thru next review date. Active 03/09/20 Tanya will have no breaks in skin integrity thru next review date. Active 03/09/2022 Tanya will have no increase i n signs or symptoms of hyper/hypotension thru next review. Active 03/09/2022 Tanya will maintain current level of ADL function thru next review. Active 03/09/2022 Tanya will not be abused and/or neglected thru ne xt review date. Active 03/09/2022 Tanya will not experience any adverse side effects from psychotropic medications thru next review. Active 03/09/2022 Tanya will not experience any side effects from Clozapine therapy thru next review date. Active 03/09/2022 Tanya will not show a decline in psychosocial well-being or experience adverse effects through next care review. Active 1 05/09/2021 Tanya will participate in 3-4 structured activiti es per week. Active 03/09/2022 Tanya will remain at the high est level of function with medical intervention thru next review date. Active 03/09/2022 Tanya will remain free of sig ns/symptoms of Covid 19 through review date. Active 03/09/2022 Tanya will take his medicatio n as prescribed and will comply with care thru next review date. Active 03/09/2022 Tanya's wishes will be honored thru next review d ate. Active 03/09/2022 Resident will not make any a ccusatory statements towards staff or peers. Active 03/09/2022 Resident will not make false statements about staff and/or peers thru next review date. Active 03/09/2022 Resident will reduce number of loud outbursts at times when things do not go his way. Active 03/09/2022 The Tanya will attempt to learn simple coping ski lls Active 03/09/2022 The Tanya will share/discuss anxiety provoking and/or otherwise disturbing thoughts with a caregiver throughout next review. Active 03/09/2022 Will have no complications r egarding diagnosis thru next review date. Active 03/09/2022 Will have no complications r elated to dental issues thru next review date. Active 03/09/2022 Will have no increase in sig ns or symptoms of hyper/hypoglycemic reactions thru next review. Active 03/09/2022 Will maintain maintenance of diabetes by next re view date. Active 03/09/2022 Will maintain weight w/no si gnificant weight loss or gain by next review date. Active 03/09/2022 Will participate in the Point Level System thru next review date. Active 03/09/2022 will have a decrease in beha viors thru medical and non-medical interventions thru next review date. Active 03/09/2022 will have a decrease of simpson ucinations and/or delusions thru medical intervention thru next review date. Active 03/09/2022 Immunizations Immunization Status Vaccine Details Vaccine Code CodeSystem Date Notes Influenza completed Influenza, high-dose, split virus, quadrivalent, injectable, preservative free lotNumber: [id number] expiry: 10/31/2019 Mfg: [employer]of[employer] P[employer] Given Right Deltoid intramuscularly 197 CVX created date: 8 consent date: 9 administe red date: 9 influenza vaccine given at [facility] with poa present. on 02/06/19. SARS-COV-2 (COVID-19) completed SARS-COV-2 (COVID-19) vaccine, mRNA, spike protein, LNP, preservative free, 30 mcg/0.3mL dose lotNumber: [id number] expiry: 05/01/2021 Mfg: [employer] Given 0.3 ml Right Deltoid intramuscularly Step 1 of Multi-step with next step required 208 CVX created date: 2 consent date: 2 administe red date: 1 Administered by Janie Christiansen [facility] through [facility] SARS-COV-2 (COVID-19) completed SARS-COV-2 (COVID-19) vaccine, mRNA, spike protein, LNP, preservative free, 100 mcg/0.5mL dose or 50 mcg/0.25mL dose lotNumber: [id number] Mfg: pfizer Given intramuscularly Step 1 of Multi-step with next step required 207 CVX created date: 1 consent date: 1 administe red date: 1 SARS-COV-2 (COVID-19) completed SARS-COV-2 (COVID-19) vaccine, mRNA, spike protein, LNP, preservative free, 100 mcg/0.5mL dose or 50 mcg/0.25mL dose lotNumber: [id number] Mfg: pfizer Given intramuscularly Step 1 of Multi-step with next step required 207 CVX created date: 1 consent date: 1 administe red date: 1 Mental Status Section Date Assessment Total Score Description 02/04/2022 BIMS 15 cognitively int act CAM 0 No delirium ind icated PHQ-9 12 moderate depres yadira 11/21/2021 BIMS 15 cognitively int act CAM 0 No delirium ind icated PHQ-9 11 moderate depres yadira Problems Problem # Description Date of onset Resolved Date Code CodeSystem Concern Status 1 COVID-19 03/25/20 20 04/10/[address] completed 2 COGNITIVE COMMUNICATION DEFICIT 11/15/[address] active 3 DIFFICULTY IN WALKING, NOT ELSEWHERE CLASSIFIED 11/15/[address] active 4 MUSCLE WEAKNESS (GENERALIZED) 11/15/[address] active 5 OTHER ABNORMALITIES OF GAIT AND MOBILITY 11/15/[address] active 6 OTHER LACK OF COORDINATION 11/15/[address] active 7 SLURRED SPEECH 11/15/[address] active 8 UNSTEADINESS ON FEET 11/15/[address] active 9 WEAKNESS 11/15/[address] active 10 UNSPECIFIED DISLOCATION OF LEFT SHOULDER JOINT, SEQUELA 09/19/19 20 08/25/[address] completed 11 ATHEROSCLEROTIC HEART DISEASE OF [place] CORONARY ARTERY WITHOUT ANGINA PECTORIS 04/22/[address] active 12 METABOLIC ENCEPHALOPATHY 04/17/20 19 09/20/[address] completed 13 ESSENTIAL (PRIMARY) HYPERTENSION 09/14/[address] active 14 HYPERLIPIDEMIA, UNSPECIFIED 09/14/[address] active 15 HYPOTHYROIDISM, UNSPECIFIED 09/14/[address] active 16 MAJOR DEPRESSIVE DISORDER, RECURRENT, UNSPECIFIED 09/14/[address] active 17 PARANOID SCHIZOPHRENIA 09/14/[address] active 18 PARKINSON'S DISEASE 09/14/[address] active 19 TYPE 2 DIABETES MELLITUS WITHOUT COMPLICATIONS 09/14/[address] active Reason for Referral No Reasons for Referral Entered Social History Social History Observation Description Start Date End Date Code Code System Current Smoking Status Never smoked tobacco 289041024 SNOMED CT Sex Assigned At Male 1965 81926-5 [facility] Vital Signs Code Code System Vitals Name Values and Units Timing Information 20885-0 [facility] Pain Level Value=0.0 02/04/2022 43512-3 [facility] Weight Rspdy=015.7 Units=Lbs 9279-1 [facility] Respiratory Rate Value=20.0 Units=/m in 01/27/2021 8462-4 [facility] Blood Pressure-Diastolic Value=74 Un its=mmHg 01/27/2021 8480-6 [facility] Blood Pressure-Systolic Knwzi=298 Un its=mmHg 01/27/2021 8310-5 [facility] Body Temperature Value=97.7 Units= F 01/27/2021 8867-4 [facility] Heart rate Value=70.0 Units=/min 72287-7 [facility] O2 % dC Oximetry Value=98.0 Units= % 01/17/2020
--- OUTSIDE RECORDS SUMMARY | 2024-07-14 19:40 | XMS_ITS ---
Author Organization [facility] Care Team Providers Care Channel Lip Wetter Name Role Phone Félix, Radha Unavailable Unavailable Jl Pascual Unavailable Unavailable Allergies and adverse reactions No Known Allergies Care Team Name Role Address Phone Organization Dates Jl Pascual PCP [address], [place], [address], [facility] (Office): : [facility] 01/06/2016 - 09/13/2017 Radha Heard Attending Physician [place] (Office): : [facility] 01/06/2016 - 09/13/2017 Immunizations Immunization Status Vaccine Details Vaccine Code CodeSystem Date Notes Influenza completed Influenza, high-dose, split virus, quadrivalent, injectable, preservative free Mfg: [employer] Given Left Deltoid intramuscularly 197 CVX created date: 03/01/2017 consent date: 03/01/2017 administer ed date: 03/01/2017 Influenza completed Influenza, high-dose, split virus, quadrivalent, injectable, preservative free lotNumber: [id number] expiry: 10/31/2015 Mfg: AFLVUIA Given 0.5 ml Right Deltoid intramuscularly 197 CVX created date: 04/25/2015 administer ed date: 02/21/2015 Influenza completed Influenza, high-dose, split virus, quadrivalent, injectable, preservative free lotNumber: [id number] expiry: 07/30/2013 Mfg: Novartis Given 0.5 ml Left Deltoid intramuscularly 197 CVX created date: 09/29/2013 consent date: 02/20/2013 administer ed date: 01/31/2013 Educated by August Correa on 02/20/2013 Influenza completed Influenza, high-dose, split virus, quadrivalent, injectable, preservative free lotNumber: [id number] Given Right Deltoid 197 CVX created date: 09/29/2013 consent date: 01/25/2012 administer ed date: 01/20/2012 Educated by Larisa Orozco on 01/20/2012 Pneumovax Dose 1 completed lotNumber: [id number] Given Right Deltoid created date: 09/29/2013 consent date: 02/02/2012 administer ed date: 01/21/2011 Educated by Millie Doshi on 01/21/2011 Given by Millie Doshi TB 1 Step Mantoux (PPD) completed tuberculin skin test; unspecified formulation lotNumber: [id number] Given Right Forearm 98 CVX created date: 09/29/2013 consent date: 06/22/2012 administer ed date: 06/22/2012 TB 1 Step Mantoux (PPD) completed tuberculin skin test; unspecified formulation lotNumber: [id number] Given Left Forearm 98 CVX created date: 09/29/2013 consent date: 02/02/2012 administer ed date: 06/08/2011 Given by Pippa Holley Banner TB Mantoux completed tuberculin skin test; purified protein derivative solution, intradermal lotNumber: [id number] expiry: 04/02/2018 Given 0.1 ml Left Forearm intradermally 96 CVX created date: 01/12/2017 consent date: 01/11/2017 administer ed date: 01/12/2017 Educated by Cynthia Wood LPN on 01/11/2017 TB 1 Step Mantoux (PPD) completed lotNumber: [id number] expiry: 05/24/2016 Mfg: Tuberculin Given 0.1 ml Right Forearm intradermally created date: 10/04/2014 consent date: 10/03/2014 administer ed date: 10/04/2014 TB 1 Step Mantoux (PPD) completed lotNumber: [id number] expiry: 06/01/2015 Mfg: [employer] Given 0.1 ml Left Forearm intradermally created date: 10/04/2013 consent date: 10/04/2013 administer ed date: 10/04/2013 Educated by [email or web address] on 10/04/2013 Mental Status Section Date Assessment Total Score Description 09/13/2017 CAM 0 No delirium ind icated 07/08/2017 BIMS 15 cognitively int act CAM 0 No delirium ind icated PHQ-9 02 minimal depress ion Problems Problem # Description Date of onset Resolved Date Code CodeSystem Concern Status 1 HYPERLIPIDEMIA, UNSPECIFIED 04/02/[address] active 2 ESSENTIAL (PRIMARY) HYPERTENSION 12/18/[address] active 3 HYPOTHYROIDISM, UNSPECIFIED 12/18/[address] active 4 MAJOR DEPRESSIVE DISORDER, SINGLE EPISODE, UNSPECIFIED 12/18/[address] active 5 OTHER SECONDARY PARKINSONISM 12/18/[address] active 6 OVERWEIGHT 12/18/[address] active 7 PARANOID SCHIZOPHRENIA 12/18/[address] active 8 PURE HYPERCHOLESTEROLEMIA 12/18/19 08 04/02/[address] completed Reason for Referral No Reasons for Referral Entered Social History Social History Observation Description Start Date End Date Code Code System Current Smoking Status Tobacco smoking consumption unknown 176740798 SNOMED CT Sex Assigned At Male 1965 98211-1 [facility] Vital Signs Code Code System Vitals Name Values and Units Timing Information 9279-1 [facility] Respiratory Rate Value=16.0 Units=/m in 09/13/2017 8462-4 [facility] Blood Pressure-Diastolic Value=84 Un its=mmHg 09/13/2017 8480-6 [facility] Blood Pressure-Systolic Mszrb=938 Un its=mmHg 09/13/2017 8310-5 [facility] Body Temperature Value=96.9 Units= F 09/13/2017 8867-4 [facility] Heart rate Value=76.0 Units=/min 28901-7 [facility] Weight Pekri=010.0 Units=Lbs 06/2017 2339-0 [facility] Blood Sugar Stbsk=508.0 Units=mg/dL 2016 8302-2 [facility] Height Value=72.0 Units=Inches 06/28/2013
--- OUTSIDE RECORDS SUMMARY | 2024-07-14 19:40 | XMS_ITS ---
Author Organization 1 OF Amelia morales [facility] Address [address] [address] Care Team Providers Care Multi Disciplined Language Analyst Name Role Phone Shemar Pascual M.D. Primary Care Provider Yonathan Oneal Unavailable [phone] Allergies No Known Allergies REASON FOR VISIT DFC (Diabetic foot care) Medications Medication SIG (Take, Route, Frequency, Duration) Notes Start Date End Date Status Brilliant Carbonate Ac tive busPIRone HCl Active predniSONE 10 MG Take specified quant ity once each day as directed per instructions Orally Once a day Active Losartan Potassium A ctive hydrOXYzine HCl Acti ve Furosemide 20 MG Oral for 21 Days Active Aspirin Active Atorvastatin Calcium Active Brilliant Carbonate ER 300 MG Oral for 30 Days Active Metoprolol Succinate ER 25 MG Oral for 30 Days Active Metformin & Diet Manage Prod Active Metoprolol & Diet Manage Prod Active Levothyroxine Sodium Active OLANZapine Active Vitamin D Active Haloperidol Active Glucosamine Active Divalproex Sodium ER Active Depakote ER Active Vital Signs Height 70 in 05/10/2023 Weight 286 lbs 05/10/2023 BMI 41.03 kg/m2 05/10/2023 Encounters Encounter Location Date Provider Diagnosis 1 OF Amelia Ellington [facility] [address] [address] 05/10/2023 Yonathan Ellington Callus of foot L84 ; Diabetic peripheral neuropathy E11.42 and Onychogryphosis L60.2 Assessments Encounter Date Diagnosis (ICD Code) Assessment Notes Treatment Notes Treatment Clinical Notes Section Notes 05/10/2023 Callus of foot (ICD-10 - L84) 05/10/2023 Diabetic peripheral neuropathy (ICD-10 - E11.42) 05/10/2023 Onychogryphosis (ICD-10 - L60.2) 05/10/2023 Other Considering the associated comorbidities and physical exam findings today, this patient is at substantial risk of developing serious foot complications in the absence of regular and professional palliative foot care. Plan Of Treatment Treatment Notes Assessment Notes Other Considering the asso ciated comorbidities and physical exam findings today, this patient is at substantial risk of developing serious foot complications in the absence of regular and professional palliative foot care. Next Appt Details Follow Up: 10-12 weeks or co ntact office PRN with any concerns, Reason: Procedure Notes * Category Sub-Category Detail Notes PALLIATIVE FOOT CARE: Callus paring: (39961) Le ss than five calluses as noted above reduced with a sterile scalpel blade Nail debride (86540): Debridement of at least six mycotic and/or hypertrophic nails performed:, utilizing manual and electric debridement the affected nails were reduced the nails in length and thickness with curettage of debris from nail margins performed as needed. Nail thickness reduced by:, 10% Progress Notes * CORNELIOGinaArmenDOB:1965 (57 yo M)Acc No.[id number]:05/10/2023 Progress Note Patient: Armen STRANGE Provider: Amelia Ellington DPM :1965 A ge:57 Y S ex:Male Date:05/10/2023 Address:[address] [place] [address] Pcp:Shemar Pascual M.D. Subjective: * Chief Complaints: * D FC (Diabetic foot care) * HPI: M A assisting with visit:: HPI/Rooming: Wilian solares reason for visit:: 57 y/o diabetic male RTO for diabetic foot care. Pt does not report any acute problems with nails or calluses today. Pt reports having some knee pain, and has braces but denies using them. Pt has follow up with orthopedic next . * ROS: * MULTI-SYSTEM REVIEW:: burning, tingling,numbness in feet admits. ? * Medical History: * Surgical History: D enies Past Surgical History * Hospitalization/Major Diagno stic Procedure: * Medications: T akingpredniSONE 10 MG Tablet Take specified quantity once each day as directed per instructions Orally Once a day busPIRone HCl hydrOXYzine HCl Losartan Potassium Brilliant Carbonate Haloperidol Glucosamine Depakote ER Divalproex Sodium ER Vitamin D OLANZapine Metoprolol & Diet Manage Prod Metformin & Diet Manage Prod Levothyroxine Sodium Atorvastatin Calcium Aspirin Furosemide 20 MG Tablet Oral Metoprolol Succinate ER 25 MG Tablet Extended Release 24 Hour Oral Brilliant Carbonate ER 300 MG Tablet Extended Release Oral Taking predniSONE 10 MG Tablet Take specified quantity once each day as directed per instructions Orally Once a day Taking busPIRone HCl Taking hydrOXYzine HCl Taking Losartan Potassium Taking Brilliant Carbonate Taking Haloperidol Taking Glucosamine Taking Depakote ER Taking Divalproex Sodium ER Taking Vitamin D Taking OLANZapine Taking Metoprolol & Diet Manage Prod Taking Metformin & Diet Manage Prod Taking Levothyroxine Sodium Taking Atorvastatin Calcium Taking Aspirin Taking Furosemide 20 MG Tablet Oral Taking Metoprolol Succinate ER 25 MG Tablet Extended Release 24 Hour Oral Taking Brilliant Carbonate ER 300 MG Tablet Extended Release Oral * Allergies: N .K.D.A.no[Allergies Verified] Objective: * Vitals: W t:286lbs, Wt-k.73 kg, Ht: 70 in, BMI:41.03Index. * Examination: G eneral Examination: Constitutional / Appearance: N o acute distress , Well nourished, Appropriate personal hygiene. Mental status: C ooperative, Oriented to person, place and time, Mood and affect: normal, Judgement and intellect: normal with appropriate response to questions. Shoes today: N ew Balance tennis shoe. ? L ower Extremity VASCULAR: : Pulses: DP pulse palpable b/l, PT pulse diminished b/l.? Temperature gradient: decreased from proximal to distal bilateral. Pedal hair: s parse / absent bilateral. Venous insufficiency edema: insignificant bilateral. L ower Extremity DERM: : Skin: r elatively dry, thin, atrophic, no suspicious lesions, bilateral. Nails: N ail plates of:[id number] relatively thickened, dystrophic, discolored, incurvated. . Hyperkeratotic lesions LEFT foot: d istal 2nd toe. Hyperkeratotic lesions RIGHT foot: m edial hallux IPJ.? L ower Extremity NEURO: : General sensation appears d iminished. Muscle tone d iminished bilateral. Monofilament test (10 gram pressure) E xam of 05/10/2023:, - - revealed absent sensation to at least two distinct locations of, forefoot, bilateral. Vibration perception: E xam of 05/10/2023:, - - noted significantly diminished / absent per evaluation with 128Hz tuning fork applied to distal hallux compared to ipsilateral medial malleolus , @ bilateral feet . L ower Extremity MSK: : Lower extremity inspection and palpation: Bilateral: Severe pronation deformity of the foot and ankle RT >> LT with instability noted with gait and stance. No palpable masses or nodules noted.. Foot deformities: B ilateral:, hammertoes. Assessment: * Assessment: 1. C allus of foot - L84 2 . D iabetic peripheral neuropathy - E11.42 (Primary) 3 .?Onychogryphosis - L60.2 Plan: * Treatment: * Procedures: P ALLIATIVE FOOT CARE:: Callus paring: ( 02870) Less than five calluses as noted above reduced with a sterile scalpel blade. Nail debride (27338): D ebridement of at least six mycotic and/or hypertrophic nails performed:, utilizing manual and electric debridement the affected nails were reduced the nails in length and thickness with curettage of debris from nail margins performed as needed. Nail thickness reduced by:, 10%. * Procedure Codes: 1 1056 TRIM SKIN LESIONS, 2 TO 442202 DEBRIDE NAIL, 6 OR MORE, Modifiers: 59 * Preventive Medicine: Counseling: C are goal follow-up plan: Above Normal BMI Follow-up L ifestyle education regarding diet * Follow Up: 1 0-12 weeks or contact office PRN with any concerns * Images: * MOUNTER Sign off status: Completed true * Provider: Amelia Ellington DPM Date: 0 05/10/2023 Generated for Ed bashir/Fracisco/Miriamitting on: 0 07/14/2024 07:40 PM CDT History and Physical Notes * HPI (History of Present Illness) Category Sub-Category Detail Notes Category Not es Primary reason for visit: 57 y/o diabetic male RTO for diabetic foot care. Pt does not report any acute problems with nails or calluses today. Pt reports having some knee pain, and has braces but denies using them. Pt has follow up with orthopedic next . MA assisting with visit: HPI/Rooming: Fox Examination Category Sub-Category Detail Notes Category Not es General Examination Mental status: Cooperative, Oriented to person, place and time, Mood and affect: normal, Judgement and intellect: normal with appropriate response to questions Shoes today: New Balance tennis s hoe Constitutional / Appearance: No acute di stress , Well nourished, Appropriate personal hygiene Lower Extremity VASCULAR: Venous insufficiency edema: insignificant bilateral Pulses: DP pulse palpable b/ l, PT pulse diminished b/l Temperature gradient: decreased from pro ximal to distal bilateral Pedal hair: sparse / absent bila teral Lower Extremity NEURO: Monofilament test (10 gram pressure) Exam of 05/10/2023:, - - revealed absent sensation to at least two distinct locations of, forefoot, bilateral Vibration perception: Exam of 05/10/2023 :, - - noted significantly diminished / absent per evaluation with 128Hz tuning fork applied to distal hallux compared to ipsilateral medial malleolus , @ bilateral feet General sensation appears diminished Muscle tone diminished bilateral Lower Extremity MSK: Foot deformities: Bilateral:, ham river[place] Lower extremity inspection and palpation : Bilateral: Severe pronation deformity of the foot and ankle RT >> LT with instability noted with gait and stance. No palpable masses or nodules noted. Lower Extremity DERM: Skin: relatively dry, thin, atrophic, no suspicious lesions, bilateral Nails: Nail plates of: TA-T 9 appear relatively thickened, dystrophic, discolored, incurvated. Hyperkeratotic lesions LEFT foot: distal 2nd toe Hyperkeratotic lesions RIGHT foot: media l hallux IPJ
--- OUTSIDE RECORDS SUMMARY | 2024-07-14 19:40 | XMS_ITS | Clinical Summary ---
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 artery 11/29 Full code status 11/29/2020 Hypovolemia [...] daily; recheck level later this week - Purvis 600mg daily for mood stability, level was 0.5 - [id number] BID at lunch and bed time and [...] (11/29/2020): Added automatically from request for surgery [id number] Abnormal white blood cell (WBC) count 08/08/2020 Closed dislocation of left shoulder 06/11/2020 Overview (06/11/2020): Added automatically from request for surgery [id number] Chronic left shoulder pain 01/19/2020 Community acquired pneumonia, bilateral 04/14/20 19 Encephalopathy 04/14/2019 Problem 03/28/2013 Immunizations Immunization Administration Dates Next Due Influenza, Quadrivalent, Spl it, Preservative Free, Intramuscular 02/06/2019 Influenza, Unspecified 03/27/2013 Pfizer SARS-CoV-2 Monovalent Vaccination (12+ Yrs) PURPLE 09/12/2020,05/31/2020 Surgical History Surgery Date Site/Laterality Comments PALATE SURGERY [id number] HIATAL HERNIA REPAIR 05/03/1969 - 05/02/1970 Medical History Medical History Date Comments Depression Cancer (HCC) Hypertension Schizophrenia (HCC) 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 Never 11/25/2022 Do you belong to any clubs o r organizations such as christianity groups, unions, fraternal or athletic groups, or [...] and heating? Not hard at all 11/25/2022 [facility] - Occupational Stress [...] place to sleep or slept in a fci (including now)? No 11/25/2022 Personal Safety Answer Date Recorded Have you ever been in or are you currently in a harmful physical or emotional relationship or is someone making you feel afraid or unsafe? 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 Gender Identity Male 02/16/2020 11:08 AM CDT Sexual Orientation Straight 02/16/2020 11 :08 AM CDT Obstetrics History Last Filed Vital Signs Vital Sign Reading [...] 12/05/2023 6:35 AM CDT Plan of Treatment Health Maintenance Due Date Last Done Comments Albumin Creatinine Ratio, Urine 1965 Colon Cancer Screening-Colonoscopy 1965 Depression Screening 1966 Hepatitis C Screening 1966 Prostate Cancer Screening-PSA 1966 Dilated Eye Exam 1966 Foot Exam 1966 Lipid Panel 1966 DTaP/Tdap/Td Vaccine (1 - Tdap) 1977 Hepatitis B Screening 1984 Regular Well Visit/Exam 18-64 1984 Pneumococcal vaccine <65 (1 of 2 - PCV) 1985 Zoster Vaccine (1 of 2) 2016 Hemoglobin A1C 06/29/2021 12/27/2020 Covid-19 Vaccine (4 - 2023-2 5 season) 2024 04/02/2021, 09/12/2020, 05/31/2020 Influenza Vaccine (#1) 2024 02/06/2019, 2012 eGFR 12/04/2024 12/05/2023, 11/01, 12/27/2020, Additional history exists Procedures Procedure Name Priority Date/Time Associated Diagnosis [...] was last reviewed 2021. Testing performed by: [facility], [address] [place] [address]., [id number] Blood 12/05/2023 6:49 AM CDT 12/05/2023 6:51 AM CDT us Jos Azul MD LAB BLOOD ORDERABLE S Final Result [id number] [address] [facility] Department [place] [address] * POCT hemoglobin A1c (12/27/2020 2:28 PM CDT) Hgb A1C, POC 6.0 4.0 - 6.0 % [facility] Est Average Gluc POC 126 mg/dL [facility] Comment: The ADA recommends reporting an estimated Average Glucose (eAG) with all Hemoglobin A1c results using the equation derived from a study of 507 normal and diabetic adults. Minority populations were underrepresented and children were not included. (Diabetes Care 31:8504-8212, 2008). The eAG is not equivalent to a fasting glucose. 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
--- OUTSIDE RECORDS SUMMARY | 2024-07-14 19:40 | XMS_ITS ---
Author Organization [facility] Care Team Providers Care Audio Narrator Name Role Phone Cedrick [place] Unavailable Unavailable Allergies and adverse reactions No Known Allergies Care Team Name Role Address Phone Organization Dates Cedrick Dennismike PCP [address] [place], [place], [facility], [place] (Office): : : [facility] 03/28/2020 - 04/10/2020 Mental Status Section Date Assessment Total Score Description 04/10/2020 CAM 2 Delirium indica min 04/03/2020 BIMS 15 cognitively int act CAM 0 No delirium ind icated PHQ-9 00 Problems Problem # Description Date of onset Resolved Date Code CodeSystem Concern Status 1 ATHEROSCLEROTIC HEART DISEASE OF [place] CORONARY ARTERY WITHOUT ANGINA PECTORIS 03/27/[id number] active 2 COVID-19 03/27/[address] active 3 ESSENTIAL (PRIMARY) HYPERTENSION 03/27/[address] active 4 HYPERLIPIDEMIA, UNSPECIFIED 03/27/[address] active 5 HYPOTHYROIDISM, UNSPECIFIED 03/27/[address] active 6 MAJOR DEPRESSIVE DISORDER, RECURRENT, UNSPECIFIED 03/27/[address] active 7 PARANOID SCHIZOPHRENIA 03/27/[address] active 8 PARKINSON'S DISEASE 03/27/[address] active 9 TYPE 2 DIABETES MELLITUS WITHOUT COMPLICATIONS 03/27/[address] active 10 WEAKNESS 03/27/[address] active Reason for Referral No Reasons for Referral Entered Social History Social History Observation Description Start Date End Date Code Code System Current Smoking Status Tobacco smoking consumption unknown 934979432 SNOMED CT Sex Assigned At Male 1965 26665-5 [facility] Vital Signs Code Code System Vitals Name Values and Units Timing Information 9279-1 [facility] Respiratory Rate Value=18.0 Units=/m in 03/30/2020 8462-4 [facility] Blood Pressure-Diastolic Value=80 Un its=mmHg 03/30/2020 8480-6 [facility] Blood Pressure-Systolic Bumpw=083 Un its=mmHg 03/30/2020 8310-5 [facility] Body Temperature Value=98.1 Units= F 03/30/2020 8867-4 [facility] Heart rate Value=96.0 Units=/min 82895-9 [facility] O2 % BldC Oximetry Value=97.0 Units= % 03/30/2020
--- OUTSIDE RECORDS SUMMARY | 2024-07-14 19:40 | XMS_ITS ---
Author Organization [facility] [place], [facility] Care Team Providers Care Blade Bender Furnace Tender Name Role Phone Rebecca, Milanf Unavailable Unavailable Félix, Radha Unavailable Unavailable MAMI ABRAHAM Unavailable Unavailable Allergies and adverse reactions No Known Allergies Care Team Name Role Address Phone Organization Dates MAMI ABRAHAM PCP [address] [place], [address], [place] (Office): : [facility] [place], [facility] 10/26/2021 - 10/31/2021 Arif Habib Attending Physician [address] [address], [place], [address], [place] (Office): : : [facility] [place], [facility] 10/26/2021 - 10/31/2021 Radha Heard Attending Physician [address] [place] [address], [address], [place] (Office): [facility] and [facility] [place], [facility] 10/26/2021 - 10/31/2021 Goals Section Description Status Target Date Comfort level will stay belo w his/her acceptable pain level thru next review. Active 11/30/2021 Guardian will inform nursing and/or home health care social worker of desire for discharge thru next review date. Active 11/30/2021 Tanya falls/injuries will be minimized through management of risk factors thru next review. Active 11/30/2021 Tanya will attend group therapy thru next review date. Active 11/30/2021 Tanya will be free from compl ications of medication thru next review date. Active 11/30/2021 Tanya will behave in a manner consistent with resident conduct policies through the next review. Active 11/30/2021 Tanya will exhibit repetitive statements/questions less then four times a day thru next review date. Active 11/30/2021 Tanya will express thoughts a nd feelings in a coherent, logical, goal-orientated manner thru next review date. Active 12/01/19 Tanya will have no breaks in skin integrity thru next review date. Active 11/30/2021 Tanya will have no increase i n signs or symptoms of hyper/hypotension thru next review. Active 11/30/2021 Tanya will maintain current level of ADL function thru next review. Active 11/30/2021 Tanya will not be abused and/or neglected thru ne xt review date. Active 11/30/2021 Tanya will not experience any adverse side effects from psychotropic medications thru next review. Active 11/30/2021 Tanya will not experience any side effects from Clozapine therapy thru next review date. Active 11/30/2021 Tanya will not show a decline in psychosocial well-being or experience adverse effects through next care review. Active 0 11/30/2021 Tanya will participate in 3-4 structured activiti es per week. Active 11/30/2021 Tanya will remain at the high est level of function with medical intervention thru next review date. Active 11/30/2021 Tanya will remain free of sig ns/symptoms of Covid 19 through review date. Active 11/30/2021 Tanya will take his medicatio n as prescribed and will comply with care thru next review date. Active 11/30/2021 Tanya's wishes will be honored thru next review d ate. Active 11/30/2021 Resident will not make any a ccusatory statements towards staff or peers. Active 11/30/2021 Resident will not make false statements about staff and/or peers thru next review date. Active 11/30/2021 Resident will reduce number of loud outbursts at times when things do not go his way. Active 11/30/2021 The Tanya will attempt to learn simple coping ski lls Active 11/30/2021 The Tanya will share/discuss anxiety provoking and/or otherwise disturbing thoughts with a caregiver throughout next review. Active 11/30/2021 Will have no complications r egarding diagnosis thru next review date. Active 11/30/2021 Will have no complications r elated to dental issues thru next review date. Active 11/30/2021 Will have no increase in sig ns or symptoms of hyper/hypoglycemic reactions thru next review. Active 11/30/2021 Will maintain maintenance of diabetes by next re view date. Active 11/30/2021 Will maintain weight w/no si gnificant weight loss or gain by next review date. Active 11/30/2021 Will participate in the Point Level System thru next review date. Active 11/30/2021 will have a decrease in beha viors thru medical and non-medical interventions thru next review date. Active 11/30/2021 will have a decrease of simpson ucinations and/or delusions thru medical intervention thru next review date. Active 11/30/2021 Immunizations Immunization Status Vaccine Details Vaccine Code CodeSystem Date Notes Influenza completed Influenza, high-dose, split virus, quadrivalent, injectable, preservative free lotNumber: [id number] expiry: 10/31/2019 Mfg: [employer] Given Right Deltoid intramuscularly 197 CVX created date: 8 consent date: 9 administe red date: 9 influenza vaccine given at [facility] with poa present. on 02/06/19. SARS-COV-2 (COVID-19) completed SARS-COV-2 (COVID-19) vaccine, mRNA, spike protein, LNP, preservative free, 30 mcg/0.3mL dose lotNumber: [id number] expiry: 05/01/2021 Mfg: Pfizer Given 0.3 ml Right Deltoid intramuscularly Step 1 of Multi-step with next step required 208 CVX created date: 2 consent date: 2 administe red date: 1 Administered by Janie Christiansen [facility] through [facility] SARS-COV-2 (COVID-19) completed SARS-COV-2 (COVID-19) vaccine, mRNA, spike protein, LNP, preservative free, 100 mcg/0.5mL dose or 50 mcg/0.25mL dose lotNumber: [id number] Mfg: Pfizer Given intramuscularly Step 1 of Multi-step with next step required 207 CVX created date: 1 consent date: administe red date: 1 SARS-COV-2 (COVID-19) completed SARS-COV-2 (COVID-19) vaccine, mRNA, spike protein, LNP, preservative free, 100 mcg/0.5mL dose or 50 mcg/0.25mL dose lotNumber: [id number] Mfg: Pfizer Given intramuscularly Step 1 of Multi-step with next step required 207 CVX created date: 1 consent date: 1 administe red date: 1 Medications Section Medication Name Status Code CodeSystem Dose Route Frequency Admin Type Sig Text Start Date End Date LITHIUM CARB CAP 600MG active 19780103 RXNORM 1 capsule Oral two times a day Routine Give 1 capsul e by mouth two times a day relate d to PARANO ID SCHIZO PHRENI A (F20.0 ) 2021 - VITAMIN D3 25MCG (1000IU) TABS active 714724 RXNORM 1 tablet Oral one time a day Routine Give 1 tablet by mouth one time a day for supple ment 2021 - ASPIRIN LOW DOSE 81MG CHEW active 467434 RXNORM 1 tablet Oral one time a day Routine Give 1 tablet by mouth one time a day for prophy laxis 2021 - DIVALPROEX TAB 500MG ER active 8526440 RXNORM 1 tablet Oral in the morning Routine Give 1 tablet by mouth in the mornin g for SEIZUR E DISORD ER SWALLO W WHOLE DO NOT CHEW OR CRUSH 2021 - GLUCOSAMINE CAP 500MG active 4493890 RXNORM 3 capsule Oral two times a day Routine Give 3 capsul e by mouth two times a day for supple ment 2021 - METOPROL SUC TAB 25MG ER active 084815 RXNORM 1 tablet Oral one time a day Routine Give 1 tablet by mouth one time a day relate d to ESSENT IAL (PRIMA RY) HYPERT ENSION (I10) DO NOT CRUSH 2021 - LOSARTAN 50MG TABS active 404536 RXNORM 1 tablet Oral two times a day Routine Give 1 tablet by mouth two times a day relate d to ESSENT IAL (PRIMA RY) HYPERT ENSION (I10) 2021 - ATORVASTATIN 20MG TABS active 646927 RXNORM 1 tablet Oral at bedtime Routine Give 1 tablet by mouth at bedtim e relate d to HYPERL IPIDEM IA, UNSPEC IFIED (E78.5 ) 2021 - METFORMIN TAB 500MG active 803829 RXNORM 1 tablet Oral one time a day Routine Give 1 tablet by mouth one time a day relate d to TYPE 2 DIABET ES MELLIT US WITHOU T COMPLI CATION S (E11.9 ) 2021 - OLANZAPINE TAB 20MG active 913434 RXNORM 1 tablet Oral at bedtime Routine Give 1 tablet by mouth at bedtim e relate d to PARANO ID SCHIZO PHRENI A (F20.0 ) 2021 - Divalproex Sodium ER Tablet Extended Release 24 Hour 500 MG active 3899878 RXNORM 2 tablet Oral at bedtime Routine Give 2 tablet by mouth at bedtim e for SEIZUR E DISORD ER SWALLO W WHOLE. DO NOT CHEW OR CRUSH. 2021 - Haloperidol Tablet 5 MG active 113983 RXNORM 1 tablet Oral three times a day Routine Give 1 tablet by mouth three times a day relate d to PARANO ID SCHIZO PHRENI A (F20.0 ) 2021 - Synthroid Tablet 100 MCG active 402081 RXNORM 1 tablet Oral one time a day Routine Give 1 tablet by mouth one time a day relate d to HYPOTH YROIDI SM, UNSPEC IFIED (E03.9 ) 2021 - Mental Status Section Date Assessment Total Score Description 08/22/2021 BIMS 15 cognitively int act CAM 0 No delirium ind icated PHQ-9 07 mild depression 05/22/2021 BIMS 15 cognitively int act CAM 0 No delirium ind icated PHQ-9 00 Problems Problem # Description Date of onset Resolved Date Code CodeSystem Concern Status 1 COVID-19 03/25/20 20 04/10/[address] completed 2 COGNITIVE COMMUNICATION DEFICIT 11/15/[address] active 3 DIFFICULTY IN WALKING, NOT ELSEWHERE CLASSIFIED 11/15/[address] active 4 MUSCLE WEAKNESS (GENERALIZED) 11/15/[address] active 5 OTHER ABNORMALITIES OF GAIT AND MOBILITY 11/15/[address] active 6 OTHER LACK OF COORDINATION 11/15/[address] active 7 SLURRED SPEECH 11/15/[address] active 8 UNSTEADINESS ON FEET 11/15/[address] active 9 WEAKNESS 11/15/[address] active 10 UNSPECIFIED DISLOCATION OF LEFT SHOULDER JOINT, SEQUELA 09/19/1908/25/[address] completed 11 ATHEROSCLEROTIC HEART DISEASE OF [place] CORONARY ARTERY WITHOUT ANGINA PECTORIS 04/22/[address] active 12 METABOLIC ENCEPHALOPATHY 04/17/20 19 09/20/[address] completed 13 ESSENTIAL (PRIMARY) HYPERTENSION 09/14/[address] active 14 HYPERLIPIDEMIA, UNSPECIFIED 09/14/[address] active 15 HYPOTHYROIDISM, UNSPECIFIED 09/14/[address] active 16 MAJOR DEPRESSIVE DISORDER, RECURRENT, UNSPECIFIED 09/14/[address] active 17 PARANOID SCHIZOPHRENIA 09/14/[address] active 18 PARKINSON'S DISEASE 09/14/[address] active 19 TYPE 2 DIABETES MELLITUS WITHOUT COMPLICATIONS 09/14/[address] active Reason for Referral No Reasons for Referral Entered Social History Social History Observation Description Start Date End Date Code Code System Current Smoking Status Never smoked tobacco 016818780 SNOMED CT Sex Assigned At Male 1965 87840-0 [facility] Vital Signs Code Code System Vitals Name Values and Units Timing Information 73995-2 [facility] Pain Level Value=0.0 11/12/2021 44485-0 [facility] Weight Vwnvi=379.0 Units=Lbs 06/2021 9279-1 [facility] Respiratory Rate Value=20.0 Units=/m in 01/27/2021 8462-4 [facility] Blood Pressure-Diastolic Value=74 Un its=mmHg 01/27/2021 8480-6 [facility] Blood Pressure-Systolic Ykapp=955 Un its=mmHg 01/27/2021 8310-5 [facility] Body Temperature Value=97.7 Units= F 01/27/2021 8867-4 [facility] Heart rate Value=70.0 Units=/min 34632-9 [facility] O2 % BldC Oximetry Value=98.0 Units= % 01/17/2020
--- OUTSIDE RECORDS SUMMARY | 2024-07-14 19:40 | XMS_ITS ---
Author Organization 1 OF Amelia morales [facility] Address [address] [address] Care Team Providers Care Scrap Dealer Name Role Phone Shemar Pascual M.D. Primary Care Provider Yonathan Oneal REASON FOR VISIT DFC (Diabetic foot care) Encounters Encounter Location Date Provider Diagnosis 1 OF Amelia Ellington [facility] [address] [facility] [address] [place] [address] 09/16/2023 Yonathan Ellington Callus of foot L84 ; Diabetic peripheral neuropathy E11.42 and Onychogryphosis L60.2 Assessments Encounter Date Diagnosis (ICD Code) Assessment Notes Treatment Notes Treatment Clinical Notes Section Notes 09/16/2023 Callus of foot (ICD-10 - L84) 09/16/2023 Diabetic peripheral neuropathy (ICD-10 - E11.42) 09/16/2023 Onychogryphosis (ICD-10 - L60.2) 09/16/2023 Other Considering the associated comorbidities and [...] Detail Notes PALLIATIVE FOOT CARE: Callus paring: (54505) Le ss than five calluses as noted above reduced with a sterile scalpel blade Nail debride (71177): Debridement of at least six mycotic and/or hypertrophic nails performed:, utilizing manual and electric debridement the affected nails were reduced the nails in length and thickness with curettage of debris from nail margins performed as needed. Nail thickness reduced by:, 10% Progress Notes * Armen RYANDOB:1965 (59 yo M)Acc No.[id number]:09/16/2023 Progress Note Patient: Armen STRANGE Provider: Amelia Ellington DPM :1965 A ge:58 Y S ex:Male Date:09/16/2023 Address:[address] [place] [address] Pcp:Shemar Pascual M.D. Subjective: * Chief Complaints: * 1 . DFC (Diabetic foot care). * HPI: Tigre A assisting with visit:: HPI/Rooming: . ..... P [facility] reason for visit:: 58 y/o diabetic male RTO for diabetic foot care. Pt reports no acute issues with nails or calluses today. * Medical History: Objective: * Vitals: * Examination: G eneral Examination: Constitutional / Appearance: N o acute distress , Well nourished, Appropriate personal hygiene. Mental status: C ooperative, Oriented to person, place and time, Mood and affect: normal, Judgement and intellect: normal with appropriate response to questions. Shoes today: , XXXXXX. L ower Extremity VASCULAR: : Pulses: DP pulse palpable b/l, PT pulse diminished b/l.? Temperature gradient: decreased from proximal to distal bilateral. Pedal hair: s parse / absent bilateral. Venous insufficiency edema: insignificant bilateral. L ower Extremity DERM: : Skin: r elatively dry, thin, atrophic, no suspicious lesions, bilateral. Nails: N ail plates of:[id number] relatively thickened, dystrophic, discolored, incurvated. . Hyperkeratotic [...] iabetic peripheral neuropathy - E11.42 (Primary) 3 . O nychogryphosis - L60.2 Plan: * Treatment: * Procedures: P ALLIATIVE FOOT CARE:: Callus paring: ( 11387) Less than five calluses as noted above reduced with a sterile scalpel blade. Nail debride (97634): D ebridement of at least six mycotic and/or hypertrophic nails performed:, utilizing manual and electric debridement the affected nails were reduced the nails in length and thickness with curettage of debris from nail margins performed as needed. Nail thickness reduced by:, 10%. * Follow Up: 1 0-12 weeks or contact office PRN with any concerns * Images: * Electronic signature of Lacy Ellington DPM on 07/14/2024 at 07:40 PM CDT Sign off status: Pending * Provider: Amelia Ellington DPM Date: 0 09/16/2023 Generated for Ed bashir/Fracisco/Kianna on: 0 07/14/2024 07:40 PM CDT History and Physical Notes * HPI (History of Present Illness) Category Sub-Category Detail Notes Category Not es Primary reason for visit: 58 y/o diabetic male RTO for diabetic foot care. Pt reports no acute issues with nails or calluses today. MA assisting with visit: HPI/Rooming: ..... Examination Category Sub-Category Detail Notes Category Not es General Examination Mental status: Cooperative, Oriented to person, place and time, Mood and affect: normal, Judgement and intellect: normal with appropriate response to questions Shoes today: , XXXXXX Constitutional / Appearance: No acute di stress [...] bilateral Lower Extremity MSK: Foot deformities: Bilateral:, serg munoz Lower extremity inspection and palpation : Bilateral: [...]
--- OUTSIDE RECORDS SUMMARY | 2024-07-14 19:40 | XMS_ITS ---
Author Organization [facility] Care Team Providers Care Bus Person Dishwasher Name Role Phone Rubén Cedrick Unavailable Unavailable Allergies and adverse reactions No Known Allergies Care Team Name Role Address Phone Organization Dates Cedrick [place] PCP [address], [place], [facility], [place] (Office): : : [facility] 03/28/2020 - 04/10/2020 Mental Status Section Date Assessment Total Score Description 04/10/2020 CAM 2 Delirium indica min 04/03/2020 BIMS 15 cognitively int act CAM 0 No delirium ind icated PHQ-9 00 Problems Problem # Description Date of onset Resolved Date Code CodeSystem Concern Status 1 ATHEROSCLEROTIC HEART DISEASE OF [place] CORONARY ARTERY WITHOUT ANGINA PECTORIS 03/27/[id number] active 2 COVID-19 03/27/[address] active 3 ESSENTIAL (PRIMARY) HYPERTENSION 03/27/[address] active 4 HYPERLIPIDEMIA, UNSPECIFIED 03/27/[address] active 5 HYPOTHYROIDISM, UNSPECIFIED 03/27/[address] active 6 MAJOR DEPRESSIVE DISORDER, RECURRENT, UNSPECIFIED 03/27/[address] active 7 PARANOID SCHIZOPHRENIA 03/27/[address] active 8 PARKINSON'S DISEASE 03/27/[address] active 9 TYPE 2 DIABETES MELLITUS WITHOUT COMPLICATIONS 03/27/[address] active 10 WEAKNESS 03/27/[address] active Reason for Referral No Reasons for Referral Entered Social History Social History Observation Description Start Date End Date Code Code System Current Smoking Status Tobacco smoking consumption unknown 794649898 SNOMED CT Sex Assigned At Male 1965 96181-6 [facility] Vital Signs Code Code System Vitals Name Values and Units Timing Information 9279-1 [facility] Respiratory Rate Value=18.0 Units=/m in 03/30/2020 8462-4 [facility] Blood Pressure-Diastolic Value=80 Un its=mmHg 03/30/2020 8480-6 [facility] Blood Pressure-Systolic Iuttf=386 Un its=mmHg 03/30/2020 8310-5 [facility] Body Temperature Value=98.1 Units= F 03/30/2020 8867-4 [facility] Heart rate Value=96.0 Units=/min 44157-3 [facility] O2 % BldC Oximetry Value=97.0 Units= % 03/30/2020
[2024-07-14 19:54] LABS: Hematocrit 31.2 % (42.0-52.0); Hemoglobin 9.8 g/dL (14.0-18.0); Mean Corpuscular HGB Conc 31.4 g/dl (32-36); Mean Corpuscular Hemoglobin 30.5 pg (26-34); Mean Corpuscular Volume 97.2 fl (80-100); Mean Platelet Volume 12.4 fl (7.4-10.4); Platelet Count Result 216 k/mm3 (150-375); Red Blood Count 3.21 M/mm3 (4.6-6.20); Red Cell Distribution Width 12.9 % (11.5-14.5); White Blood Count 22.7 K/mm3 (4.5-10.0)
[2024-07-14 20:06] LABS: Lactic Acid Reflex 0.9 mmol/L (0.7-2.0)
[2024-07-14 20:07] LABS: Alanine Aminotransferase 31 U/L (6-50); Albumin Level 3.3 g/dL (3.5-5.1); Alkaline Phosphatase 92 U/L (38-126); Anion Gap 7 mmol/L (4-12); Aspartate Amino Transferase 24 U/L (17-59); Bilirubin,Total 0.3 mg/dL (0.2-1.3); Blood Urea Nitrogen 22 mg/dL (9-20); Calcium 8.1 mg/dL (8.4-10.2); Carbon Dioxide 30 mmol/L (22-30); Chloride 94 mmol/L (98-107); Estimated Glomerular Filt Rate 52; Glucose 163 mg/dL (65-110); Potassium 3.8 mmol/L (3.4-5.0); Sodium 131 mmol/L (137-145)
[2024-07-14 20:08] LABS: INR 1.1; Partial Thromboplastin Time 31.7 Seconds (22.3-36.8); Prothrombin Time 14.8 Seconds (11.1-14.7)
[2024-07-14 20:16] LABS: Band Neutrophils Percent 11 % (0-6); Eosinophils Absolute Manual 0.45 K/mm3 (0.02-0.50); Eosinophils Percent Manual 2 % (0-4); Hypochromasia 1+; Lymphocytes Absolute Manual 0.68 K/mm3 (1.1-4.5); Monocytes Absolute Manual 3.17 K/mm3 (0.1-0.90); Monocytes Percent Manual 14 % (3-9); Neutrophils Absolute Manual 18.38 K/mm3 (1.3-6.7); Neutrophils Percent Manual 70 % (46-73); Platelet Estimate Adequate (Adequate); Schistocytes None Seen; Total Cells Counted 100
[2024-07-14 20:21] LABS: NT Pro B Type Natriuretic Pept 542 pg/mL (19.9-100); Troponin I < 0.012 ng/mL (0.000-0.034)
[2024-07-14 20:29] LABS: Influenza A QL RT-PCR Negative (Negative); Influenza B QL RT-PCR Negative (Negative); RSV RNA, RT-PCR Negative (Negative); SARS-CoV-2 RNA PCR Negative (Negative)
[2024-07-14 20:43] LABS: SARS-CoV-2 RNA PCR Negative (Negative)
[2024-07-14] MEDS: VANCOMYCIN 1,250 MG/NS 250 ML 1,250 MG/250 ML BAG 166.67 MG IVPB ×2 (20:59→22:52)
[2024-07-14] MEDS: SODIUM CHLORIDE 0.9% IV 1,000 ML 999 ML IV CONT ×4 (21:10→23:33)
[2024-07-14 21:19] LABS: MRSA (PCR) NOT DETECTED (NOT DETECTE)
[2024-07-14] MEDS: CEFEPIME 2 GM/NS 50 ML 2 GM/50 ML BAG IVPB (21:20)
[2024-07-14] MEDS: DOXYCYCLINE 100 MG/NS 100 ML 100 MG/100 ML BAG IVPB (22:18)
--- NOTE | 2024-07-14 23:37 | PC.NURSE ---
Report received from DAVID Lynch. Assumed care of patient at this time.
[2024-07-15] VITALS (38 sets, daily range): BP systolic 97–139; BP diastolic 58–81; PULSE 66–99; RESP 13–24; TEMP 36.4–38; O2SAT 90–98; BMI 44.3
[2024-07-15] MEDS: SODIUM CHLORIDE 0.9% IV 400 ML 999 ML IV CONT (02:40)
--- NOTE | 2024-07-15 03:50 | PC.NURSE ---
This patient, Armen Ryan, was admitted to IMU Room 200-01. Patient unable to be oriented to hospital policies and general routines including ID bracelet, bed and alarms, visiting hours, pain management, procedures, bathroom and other care routines, personal items, smoking policy, room service/diet, and visiting hours due to mental status.
[2024-07-15] MEDS: CEFEPIME 2 GM/NS 50 ML 2 GM/50 ML BAG IVPB ×3 (04:50→19:51)
[2024-07-15 07:53] LABS: Glucose Point of Care 159 mg/dl (65-105)
[2024-07-15] MEDS: METOPROLOL SUCCINATE EXT REL 12.5 MG TABCR PO (08:33)
[2024-07-15] MEDS: LORazepam (*CRX) 1 MG TABLET PO ×3 (08:33→22:35)
[2024-07-15] MEDS: CHOLECALCIFEROL 1,000 UNITS TABLET 2000 UNITS PO (08:34)
[2024-07-15] MEDS: ATORVASTATIN 20 MG TABLET PO (08:34)
[2024-07-15] MEDS: ACETAMINOPHEN 500 MG TABLET 1000 MG PO ×2 (08:34→18:35)
[2024-07-15] MEDS: SENNOSIDES 8.6 MG TABLET PO (08:34)
[2024-07-15] MEDS: cloNIDine HCL 0.1 MG TABLET PO ×2 (08:34→19:51)
[2024-07-15] MEDS: POTASSIUM CHLORIDE 10 MEQ ER TABLET PO (08:35)
[2024-07-15] MEDS: amLODIPine BESYLATE 5 MG TABLET PO (08:35)
[2024-07-15] MEDS: PANTOPRAZOLE SOD SESQUIHYDRATE 20 MG TAB PO (08:35)
[2024-07-15] MEDS: CYANOCOBALAMIN 500 MCG TABLET PO (08:35)
[2024-07-15] MEDS: ASPIRIN 81 MG ENTERIC TABLET PO (08:35)
[2024-07-15] MEDS: FUROSEMIDE 40 MG TABLET PO (08:35)
[2024-07-15] MEDS: MULTIVITAMINS THERAPEUTIC TAB (*BKC) 1 TABLET PO (08:35)
[2024-07-15] MEDS: metFORMIN HCL 500 MG TABLET PO ×2 (08:36→18:35)
[2024-07-15] MEDS: ENOXAPARIN 40 MG/0.4 ML SYRINGE SUB-Q ×2 (08:36→19:51)
[2024-07-15] MEDS: OLANZapine 5 MG TABLET 10 MG PO ×3 (08:36→20:00)
[2024-07-15] MEDS: LEVOTHYROXINE SODIUM 125 MCG TABLET PO (08:36)
[2024-07-15] MEDS: guaiFENesin 12 HR 600 MG TABCR PO ×2 (08:36→19:50)
[2024-07-15] MEDS: LOSARTAN POTASSIUM 50 MG TABLET PO ×2 (08:36→18:35)
[2024-07-15] MEDS: LITHIUM CARBONATE 300 MG CAPSULE PO ×2 (08:37→14:34)
[2024-07-15] MEDS: OLANZapine 10 MG INJ VIAL IM ×2 (11:07→22:27)
[2024-07-15] MEDS: guaiFENesin 200 MG/10 ML UDC 600 MG PO (11:07)
[2024-07-15] MEDS: MAG HYDROX/AL HYDROX/SIMETH 30 ML UDC PO (11:07)
[2024-07-15] MEDS: WATER, STERILE FOR INJECTION 10 ML VIAL XX ×2 (11:17→22:30)
[2024-07-15] MEDS: DOXYCYCLINE 100 MG/NS 100 ML 100 MG/100 ML BAG IVPB ×2 (11:17→22:32)
[2024-07-15 11:28] LABS: Glucose Point of Care 208 mg/dl (65-105)
--- NOTE | 2024-07-15 13:59 | PM.IMHP ---
H&P: HPI History of Present Illness Date/Time: 07/15/24 13:59 Chief Complaint: Shortness of breath Narrative: ER-HPI Narrative: 59-year-old with the history Parkinson's, schizophrenia, hypertension, morbid obesity was brought in from nursing my office with a complaint of shortness of for past 2 days. Patient states he is feeling much better upon arrival to the ER. I spoke with EMS he was having bilateral using was given a neb treatment. Patient denies any fever chills. Has cough is a little fluid no history of nausea or vomiting patient is resident of [place] with psychiatric illness was sent to ER with c/o of shortness of breath, patient is poor historian, stats feels better now and not as short of breath, patient had CT scan of Chest and abdomen, No evidence of pulmonary embolism, Left basilar pneumonia. Left minimal pleural effusion. Minimal right base pneumonia. Slightly enlarged lymph nodes in the paratracheal and precarinal area.Tracheobronchomalacia. No evidence of appendicitis, diverticulitis or intestinal obstruction.Atrophic pancreas.Right inguinal hernia with fat content. for pneumonia, patient is treated with Cefepime, doxycycline and vancomycin, will continue to monitor, PMFSH Social History Social History Smoking status: Unknown if ever smoked Spiritual care concerns: No Meds Home Medications and Allergies Home Medications ?Medication ?Instructions ?Recorded ?Confirmed ?Type acetaminophen 500 mg capsule 1,000 mg PO Q6H PRN pain (scale 07/15/24 07/15/24 History score 1-3) aluminum-mag hydroxide-simethicone 30 ml PO TID PRN indigestion 07/15/24 07/15/24 History 200 mg-200 mg-20 mg/5 mL oral susp (Daisy-Lanta) amlodipine 5 mg tablet 5 mg PO DAILY@0630 07/15/24 07/15/24 History aspirin 81 mg tablet,delayed 81 mg PO DAILY 07/15/24 07/15/24 History release (Adult Aspirin Regimen) atorvastatin 20 mg tablet 20 mg PO DAILY 07/15/24 07/15/24 History brexpiprazole 0.5 mg tablet 0.5 mg PO .q12hr 07/15/24 07/15/24 History (Rexulti) cholecalciferol (vitamin D3) 50 50 mcg PO DAILY 07/15/24 07/15/24 History mcg (2,000 unit) tablet (Vitamin D3) clonidine HCl 0.1 mg tablet 0.1 mg PO Q12H 07/15/24 07/15/24 History cyanocobalamin (vitamin B-12) 500 500 mcg PO DAILY 07/15/24 07/15/24 History mcg tablet divalproex 500 mg tablet,delayed 1,500 mg PO HS 07/15/24 07/15/24 History release furosemide 40 mg tablet 40 mg PO DAILY 07/15/24 07/15/24 History glucosamine sulfate 500 mg capsule 1,500 mg PO BID 07/15/24 07/15/24 History guaifenesin 100 mg/5 mL oral 600 mg PO BID PRN cough 07/15/24 07/15/24 History liquid (Daisy-Tussin) guaifenesin 600 mg tablet, 600 mg PO Q12H 07/15/24 07/15/24 History extended release 12 hr ipratropium 0.5 mg-albuterol 3 mg 3 ml inhalation Q6H PRN shortness 07/15/24 07/15/24 History (2.5 mg base)/3 mL nebulization of breath soln levothyroxine 125 mcg tablet 125 mcg PO DAILY 07/15/24 07/15/24 History lithium carbonate 300 mg capsule 300 mg PO .COMPLEX 07/15/24 07/15/24 History lorazepam 1 mg tablet 1 mg PO BID PRN anxiety 07/15/24 07/15/24 History losartan 50 mg tablet (Cozaar) 50 mg PO BID 07/15/24 07/15/24 History metformin 500 mg tablet 500 mg PO BIDWM 07/15/24 07/15/24 History metoprolol succinate 25 mg 12.5 mg PO DAILY 07/15/24 07/15/24 History tablet,extended release 24 hr multivitamin (Daily Multi-Vitamin 1 tablet PO DAILY 07/15/24 07/15/24 History tablet) olanzapine 10 mg intramuscular 10 mg IM .q4hr PRN delerium 07/15/24 07/15/24 History solution olanzapine 10 mg tablet 10 mg PO Q8H 07/15/24 07/15/24 History pantoprazole 20 mg tablet,delayed 20 mg PO DAILY 07/15/24 07/15/24 History release polyethylene glycol 3350 17 17 g PO BID PRN constipation 07/15/24 07/15/24 History gram/dose oral powder (Miralax) potassium chloride 10 mEq 10 meq PO DAILY 07/15/24 07/15/24 History tablet,extended release(part/cryst) sennosides 8.6 mg capsule (senna) 8.6 mg PO DAILY 07/15/24 07/15/24 History trazodone 50 mg tablet 50 mg PO HS 07/15/24 07/15/24 History Allergies Allergy/AdvReac Type Severity Reaction Status Date / Time hydroxyzine Allergy RASH Verified 07/15/24 05:28 Vital Signs Vital Signs - 24 hr 07/14/24 18:37 07/14/24 18:40 07/14/24 19:29 Temperature 37.6 C Pulse Rate 100 Respiratory Rate 21 H Blood Pressure 140/73 Pulse Oximetry 85 L 97 90 Oxygen Delivery Room Air Nasal Cannula Nasal Cannula Oxygen Flow Rate 2 6 Fraction of Inspired Oxygen 07/14/24 19:35 07/14/24 20:30 07/14/24 21:10 Temperature 38.2 C H 37.2 C Pulse Rate 91 84 Respiratory Rate 20 17 20 Blood Pressure 133/66 93/55 L Pulse Oximetry 94 94 98 Oxygen Delivery BiPAP Oxygen Flow Rate Fraction of Inspired Oxygen 07/14/24 21:23 07/14/24 22:23 07/14/24 23:32 Temperature 36.9 C Pulse Rate 77 85 Respiratory Rate 20 16 Blood Pressure 119/72 114/69 Pulse Oximetry 95 95 96 Oxygen Delivery BiPAP Oxygen Flow Rate Fraction of Inspired Oxygen 44 07/14/24 23:36 07/14/24 23:45 07/14/24 23:51 Temperature Pulse Rate 81 81 Respiratory Rate 16 20 16 Blood Pressure Pulse Oximetry 96 96 Oxygen Delivery BiPAP Oxygen Flow Rate Fraction of Inspired Oxygen 07/15/24 00:00 07/15/24 00:01 07/15/24 00:15 Temperature Pulse Rate 82 88 84 Respiratory Rate 18 14 14 Blood Pressure 104/74 Pulse Oximetry Oxygen Delivery Oxygen Flow Rate Fraction of Inspired Oxygen 07/15/24 00:30 07/15/24 00:31 07/15/24 00:45 Temperature Pulse Rate 77 75 71 Respiratory Rate 18 20 18 Blood Pressure 116/67 Pulse Oximetry Oxygen Delivery Oxygen Flow Rate Fraction of Inspired Oxygen 07/15/24 01:00 07/15/24 01:01 07/15/24 01:27 Temperature Pulse Rate 71 72 71 Respiratory Rate 20 22 H 20 Blood Pressure 97/58 L Pulse Oximetry Oxygen Delivery Oxygen Flow Rate Fraction of Inspired Oxygen 07/15/24 01:32 07/15/24 01:52 07/15/24 02:00 Temperature Pulse Rate 69 69 66 Respiratory Rate 21 H 19 19 Blood Pressure Pulse Oximetry Oxygen Delivery Oxygen Flow Rate Fraction of Inspired Oxygen 07/15/24 02:01 07/15/24 02:15 07/15/24 02:30 Temperature Pulse Rate 67 66 71 Respiratory Rate 21 H 16 19 Blood Pressure 99/63 L Pulse Oximetry Oxygen Delivery Oxygen Flow Rate Fraction of Inspired Oxygen 07/15/24 02:31 07/15/24 02:39 07/15/24 02:53 Temperature Pulse Rate 68 67 70 Respiratory Rate 18 20 19 Blood Pressure 116/65 Pulse Oximetry 96 97 Oxygen Delivery BiPAP Oxygen Flow Rate Fraction of Inspired Oxygen 07/15/24 03:00 07/15/24 03:01 07/15/24 03:34 Temperature 36.5 C Pulse Rate 78 77 83 Respiratory Rate 20 20 18 Blood Pressure 118/80 129/78 Pulse Oximetry 93 95 93 Oxygen Delivery Oxygen Flow Rate Fraction of Inspired Oxygen 07/15/24 04:00 07/15/24 04:00 07/15/24 04:55 Temperature 38.0 C H Pulse Rate 91 84 Respiratory Rate 18 Blood Pressure 137/65 Pulse Oximetry 95 96 Oxygen Delivery BiPAP Oxygen Flow Rate Fraction of Inspired Oxygen 40 07/15/24 06:00 07/15/24 06:09 07/15/24 07:11 Temperature Pulse Rate 69 68 Respiratory Rate 13 Blood Pressure Pulse Oximetry 95 92 Oxygen Delivery BiPAP Nasal Cannula Oxygen Flow Rate 5 Fraction of Inspired Oxygen 07/15/24 08:00 07/15/24 08:33 07/15/24 09:50 Temperature 37.6 C H Pulse Rate 92 95 91 Respiratory Rate 22 H 20 Blood Pressure 139/81 Pulse Oximetry 90 93 Oxygen Delivery Nasal Cannula Oxygen Flow Rate 5 Fraction of Inspired Oxygen 07/15/24 11:54 Temperature 36.6 C Pulse Rate 89 Respiratory Rate 24 H Blood Pressure 130/75 Pulse Oximetry 97 Oxygen Delivery Oxygen Flow Rate Fraction of Inspired Oxygen Exam Narrative: Morbidly obese BMI of 44 Patient is comfortable, NAD HEENT: eyes are clear and none icteric LUNGS: Bilateral fair entry with rhonchi HEART: RR S1S2 ABD: BS+, Soft and nontender Lower extremities: no edema SKIN: nonjaundiced Neuro: grossly intact. H&P: Results Labs Labs: Short CBC 07/14/24 Range/Units 19:44 WBC 22.7 H (4.5-10.0) K/mm3 Hgb 9.8 L (14.0-18.0) g/dL Hct 31.2 L (42.0-52.0) % Plt Count 216 (150-375) k/mm3 BMP 07/14/24 19:44 Sodium 131 L Potassium 3.8 Chloride 94 L Carbon Dioxide 30 BUN 22 H Creatinine 1.39 H Glucose 163 H Calcium 8.1 L Cardiac Enzymes 07/14/24 Range/Units 19:44 Troponin I < 0.012 (0.000-0.034) ng/mL Liver Function 07/14/24 Range/Units 19:44 Total Bilirubin 0.3 (0.2-1.3) mg/dL AST 24 (17-59) U/L ALT 31 (6-50) U/L Alkaline Phosphatase 92 (38-126) U/L Albumin 3.3 L (3.5-5.1) g/dL Assessment and Plan Assessment and plan (1) Pneumonia: Code(s): J18.9 - Pneumonia, unspecified organism Status: Acute (2) Hypoxic respiratory failure: Code(s): J96.91 - Respiratory failure, unspecified with hypoxia Status: Acute Plan patient is resident of [place] with psychiatric illness was sent to ER with c/o of shortness of breath, patient is poor historian, stats feels better now and not as short of breath, patient had CT scan of Chest and abdomen, No evidence of pulmonary embolism, Left basilar pneumonia. Left minimal pleural effusion. Minimal right base pneumonia. Slightly enlarged lymph nodes in the paratracheal and precarinal area.Tracheobronchomalacia. No evidence of appendicitis, diverticulitis or intestinal obstruction.Atrophic pancreas.Right inguinal hernia with fat content. for pneumonia, patient is treated with Cefepime, doxycycline and vancomycin, will continue to monitor,
[2024-07-15] MEDS: VANCOMYCIN 1,500 MG/NS 500 ML 1,500 MG/500 ML BAG 250 MG IVPB (14:33)
[2024-07-15 16:21] LABS: Glucose Point of Care 149 mg/dl (65-105)
[2024-07-15 17:33] LABS: Lithium 1.3 mmol/L (0.6-1.2)
[2024-07-15] MEDS: DIVALPROEX SODIUM DR 250 MG TABEC 1500 MG PO (19:49)
[2024-07-15] MEDS: traZODone HCL 50 MG TABLET PO (19:50)
[2024-07-16] VITALS (19 sets, daily range): BP systolic 99–145; BP diastolic 48–73; PULSE 59–92; RESP 14–24; TEMP 36.2–36.6; O2SAT 89–100
[2024-07-16 01:09] LABS: Glucose Point of Care 127 mg/dl (65-105)
[2024-07-16] MEDS: IPRATROPIUM 0.5 MG/ALBUTEROL SULFATE 2.5 MG AMPUL.NEB 3 ML INHALATION (03:00)
[2024-07-16 04:50] LABS: Hematocrit 29.3 % (42.0-52.0); Hemoglobin 8.9 g/dL (14.0-18.0); Mean Corpuscular HGB Conc 30.4 g/dl (32-36); Mean Corpuscular Hemoglobin 30.7 pg (26-34); Platelet Count Result 207 k/mm3 (150-375); Red Cell Distribution Width 13.4 % (11.5-14.5); White Blood Count 16.5 K/mm3 (4.5-10.0)
[2024-07-16 05:07] LABS: Anion Gap 6 mmol/L (4-12); Blood Urea Nitrogen 20 mg/dL (9-20); Calcium 8.5 mg/dL (8.4-10.2); Carbon Dioxide 29 mmol/L (22-30); Chloride 102 mmol/L (98-107); Estimated CRCL calculation 76 ml/min; Estimated Glomerular Filt Rate 54; Glucose 123 mg/dL (65-110); Magnesium 2.1 mg/dL (1.6-2.3); Potassium 4.3 mmol/L (3.4-5.0); Sodium 137 mmol/L (137-145)
[2024-07-16] MEDS: OLANZapine 5 MG TABLET 10 MG PO ×3 (05:07→20:44)
[2024-07-16] MEDS: LEVOTHYROXINE SODIUM 125 MCG TABLET PO (05:07)
[2024-07-16] MEDS: CEFEPIME 2 GM/NS 50 ML 2 GM/50 ML BAG IVPB ×3 (05:07→20:43)
[2024-07-16 05:08] LABS: Lithium 1.3 mmol/L (0.6-1.2)
[2024-07-16 06:20] LABS: Glucose Point of Care 117 mg/dl (65-105)
[2024-07-16] MEDS: CYANOCOBALAMIN 500 MCG TABLET PO (08:41)
[2024-07-16] MEDS: MULTIVITAMINS THERAPEUTIC TAB (*BKC) 1 TABLET PO (08:41)
[2024-07-16] MEDS: OLANZapine 10 MG INJ VIAL IM (08:41)
[2024-07-16] MEDS: ENOXAPARIN 40 MG/0.4 ML SYRINGE SUB-Q ×2 (08:41→20:44)
[2024-07-16] MEDS: metFORMIN HCL 500 MG TABLET PO ×2 (08:41→16:57)
[2024-07-16] MEDS: CHOLECALCIFEROL 1,000 UNITS TABLET 2000 UNITS PO (08:42)
[2024-07-16] MEDS: PANTOPRAZOLE SOD SESQUIHYDRATE 20 MG TAB PO (08:42)
[2024-07-16] MEDS: LORazepam (*CRX) 1 MG TABLET PO (08:42)
[2024-07-16] MEDS: SENNOSIDES 8.6 MG TABLET PO (08:42)
[2024-07-16] MEDS: FUROSEMIDE 40 MG TABLET PO (08:42)
[2024-07-16] MEDS: cloNIDine HCL 0.1 MG TABLET PO ×2 (08:42→20:44)
[2024-07-16] MEDS: guaiFENesin 12 HR 600 MG TABCR PO ×2 (08:42→20:44)
[2024-07-16] MEDS: amLODIPine BESYLATE 5 MG TABLET PO (08:42)
[2024-07-16] MEDS: ATORVASTATIN 20 MG TABLET PO (08:42)
[2024-07-16] MEDS: ASPIRIN 81 MG ENTERIC TABLET PO (08:42)
[2024-07-16] MEDS: METOPROLOL SUCCINATE EXT REL 12.5 MG TABCR PO (08:42)
[2024-07-16] MEDS: LOSARTAN POTASSIUM 50 MG TABLET PO ×2 (08:43→16:57)
[2024-07-16] MEDS: POTASSIUM CHLORIDE 10 MEQ ER TABLET PO (08:43)
--- NOTE | 2024-07-16 11:11 | PCSTNOTE ---
Please refer to the Bedside Swallow Evaluation in the EMR. Please note, silent aspiration cannot be ruled out at bedside. This 59 year old male was seen at bedside for a BSE to ensure swallowing safety during oral intake. The pt was admitted on 07/14 due to shortness of breath. The pt has a past medical history of Parkinson's and was diagnosed with minimal R base pneumonia upon admittance. The pt additionally has a past medical history of schizophrenia, and would continuously yell out throughout the duration of the BSE stating that the ST was the patients sister . ST continuously redirected the pt throughout the evaluation. ST was accompanied by another RN this date. The pt completed an oral motor exam and has good strength and range of mobility for oral intake. The pts RN informed the ST that the pt had difficulty taking his pills this morning due to the pt taking big sips of water instead of small sips like the pt was asked. The pt trialed ice chips, thin liquid, puree, and solid consistencies via spoon, straw, and hand. The pt could feed himself, but after a few trials asked the ST for help. No s/s of aspiration were noted following any trials but the pt did demonstrate multiple bouts of eructation. Laryngeal elevation was adequate and timely for all swallows. During the evaluation, the pt followed simple directions to go slow, but when independently taking a drink, the pt took large, consecutive gulps. Additionally, the pt would yell out while his mouth was full despite encouragement to have an empty mouth when speaking to ensure safety during oral intake. Please note that silent aspiration cannot be ruled out at bedside. Due to the pt showing no s/s of aspiration throughout the BSE, it is recommended that this pt receive a Level 6 - Soft and Bite Sized, Level 1 - Thin liquid diet. Due to impulsivity, it is recommended that the pt have 1:1 supervision during meals and be encouraged to take small bites/sips. The pt should be sitting up and distractions should be minimized as much as possible. If possible, pills should be crushed and put into pudding. Dr. Vasquez and DAVID Chauhan were notified of results and recommendations. Thank you for this referral.
[2024-07-16] MEDS: DEXTROSE 5%/0.9% SOD CHL 1,000 ML 100 ML IV CONT (11:51)
[2024-07-16] MEDS: DOXYCYCLINE 100 MG/NS 100 ML 100 MG/100 ML BAG IVPB ×2 (11:52→22:15)
[2024-07-16] MEDS: OLANZapine 5 MG, WATER, STERILE FOR INJECTION 2.1 ML IM (11:52)
[2024-07-16 12:14] LABS: Glucose Point of Care 161 mg/dl (65-105)
--- NOTE | 2024-07-16 12:29 | PCPTNOTE ---
HOLD PT evaluation per RN, due to pt agitation and has just fallen asleep.
--- NOTE | 2024-07-16 12:38 | PCOTNOTE ---
Attempted OT evaluation at 10:43; per RN pt. just fell asleep and has been agitated all morning. Requests to let pt. sleep. Will continue to follow.
[2024-07-16] MEDS: VANCOMYCIN 1,500 MG/NS 500 ML 1,500 MG/500 ML BAG 250 MG IVPB (13:37)
[2024-07-16] MEDS: guaiFENesin 200 MG/10 ML UDC 600 MG PO (15:01)
--- NOTE | 2024-07-16 17:26 | P.PNIM_ITS ---
Progress Note: A&P Assessment and Plan (1) Pneumonia: Code(s): J18.9 - Pneumonia, unspecified organism Status: Acute (2) Hypoxic respiratory failure: Code(s): J96.91 - Respiratory failure, unspecified with hypoxia Status: Acute Plan patient remains clinically stable however patient to continue to have agitation, today patient had bedside swallow study, speech pathologist was quite concern as patient does not follow instruction, high risk of dysphagia and chocking recommended bite size meals, patient white counts are tending patient has pneumonia and being treated with Cefepime, doxycycline and vancomycin, patient white counts are trending down, also patient with bipolar taking his lithium levels are above normal, will hold his lithium and monitor lithium levels daily. for pneumonia, patient is treated with Cefepime, doxycycline and vancomycin, will continue to monitor, Subjective Date/time seen: 07/16/24 17:26 Interval history: patient is resident of [place] with psychiatric illness was sent to ER with c/o of shortness of breath, patient is poor historian, stats feels better now and not as short of breath, patient had CT scan of Chest and abdomen, No evidence of pulmonary embolism, Left basilar pneumonia. Left minimal pleural effusion. Minimal right base pneumonia. Slightly enlarged lymph nodes in the paratracheal and precarinal area.Tracheobronchomalacia. No evidence of appendicitis, diverticulitis or intestinal obstruction.Atrophic pancreas.Right inguinal hernia with fat content. patient remains clinically stable however patient to continue to agitation, today patient had bedside swallow study, speech pathologist was quite concern as patient does not follow instruction, high risk of dysphagia and chocking recommended bite size meals, patient white counts are tending patient has pneumonia and being treated with Cefepime, doxycycline and vancomycin, patient white counts are trending down, also patient with bipolar taking his lithium levels are above normal, will hold his lithium and monitor lithium levels daily. Exam Narrative: Morbidly obese BMI of 44 Patient is comfortable, NAD HEENT: eyes are clear and none icteric LUNGS: Bilateral fair entry with rhonchi HEART: RR S1S2 ABD: BS+, Soft and nontender Lower extremities: no edema SKIN: nonjaundiced Neuro: grossly intact. Objective Data Vital Signs Vital Signs: Vital Signs - 24 hr 07/15/24 18:00 07/15/24 20:00 07/15/24 20:00 Temperature 36.4 C Pulse Rate 71 99 Respiratory Rate 20 Blood Pressure 115/67 Pulse Oximetry 98 95 Oxygen Delivery Nasal Cannula Oxygen Flow Rate 3 07/15/24 20:00 07/15/24 22:00 07/15/24 23:39 Temperature 36.5 C Pulse Rate 67 73 81 Respiratory Rate 18 Blood Pressure 120/70 Pulse Oximetry 95 Oxygen Delivery Oxygen Flow Rate 07/16/24 00:00 07/16/24 00:00 07/16/24 00:06 Temperature Pulse Rate 73 Respiratory Rate Blood Pressure Pulse Oximetry 96 89 L Oxygen Delivery Nasal Cannula Nasal Cannula Oxygen Flow Rate 3 5 07/16/24 02:00 07/16/24 03:00 07/16/24 03:00 Temperature Pulse Rate 59 L 75 75 Respiratory Rate 20 Blood Pressure Pulse Oximetry 96 Oxygen Delivery Nasal Cannula Oxygen Flow Rate 5 07/16/24 03:10 07/16/24 03:30 07/16/24 04:00 Temperature Pulse Rate 74 72 Respiratory Rate 20 Blood Pressure Pulse Oximetry 95 Oxygen Delivery Nasal Cannula Oxygen Flow Rate 5 07/16/24 04:00 07/16/24 05:22 07/16/24 05:22 Temperature 36.6 C Pulse Rate 67 75 Respiratory Rate 18 Blood Pressure 99/48 L Pulse Oximetry 92 100 Oxygen Delivery Nasal Cannula Oxygen Flow Rate 3 07/16/24 08:00 07/16/24 08:00 07/16/24 08:42 Temperature 36.4 C L Pulse Rate 79 84 88 Respiratory Rate 24 H Blood Pressure 126/66 Pulse Oximetry 97 Oxygen Delivery Oxygen Flow Rate 07/16/24 10:00 07/16/24 11:58 07/16/24 12:00 Temperature 36.4 C Pulse Rate 74 89 86 Respiratory Rate 14 Blood Pressure 145/62 H Pulse Oximetry 93 Oxygen Delivery Oxygen Flow Rate 07/16/24 12:45 07/16/24 14:28 07/16/24 15:34 Temperature 36.5 C Pulse Rate 87 Respiratory Rate 17 Blood Pressure 134/67 Pulse Oximetry 95 94 91 Oxygen Delivery Nasal Cannula Nasal Cannula Oxygen Flow Rate 1 1 07/16/24 16:00 07/16/24 16:00 Temperature 36.5 C Pulse Rate 85 76 Respiratory Rate 17 Blood Pressure 132/64 Pulse Oximetry 96 Oxygen Delivery Oxygen Flow Rate Intake/Output Intake/Output: Intake & Output 07/13/24 07/14/24 07/15/24 03/16/25 23:59 23:59 23:59 23:59 Intake Total 3400 2792 872 Output Total 4413 2750 Balance 3405 3792 -5925 Meds/Results Medications: Active Medications Generic Name Dose Route Start Last Admin Trade Name Freq PRN Reason Stop Dose Admin Acetaminophen 1,000 mg 07/15/24 07:40 07/15/24 18:35 Acetaminophen 500 Mg Tablet PO 1,000 mg Q6H PRN Administration pain (scale score 1-3) Al Hydrox/Mg Hydrox/Simethicone 30 ml 07/15/24 07:40 07/15/24 11:07 Mag Hydrox/Al Hydrox/Simeth 30 Ml Udc PO 30 ml TID PRN Administration indigestion Albuterol/Ipratropium 3 ml 07/15/24 07:40 07/16/24 03:00 Ipratropium 0.5 Mg/Albuterol Sulfate 2.5 Mg Ampul.Neb 3 Ml INHALATION 3 ml Q6H PRN Administration shortness of breath Amlodipine Besylate 5 mg 07/15/24 09:00 07/16/24 08:42 Amlodipine Besylate 5 Mg Tablet PO 5 mg DAILY NILSA Administration Aspirin 81 mg 07/15/24 09:00 07/16/24 08:42 Aspirin 81 Mg Enteric Tablet PO 81 mg DAILY NILSA Administration Atorvastatin Calcium 20 mg 07/15/24 09:00 07/16/24 08:42 Atorvastatin 20 Mg Tablet PO 20 mg DAILY NILSA Administration Clonidine HCl 0.1 mg 07/15/24 09:00 07/16/24 08:42 Clonidine Hcl 0.1 Mg Tablet PO 0.1 mg Q12HR NILSA Administration Cyanocobalamin 500 mcg 07/15/24 09:00 07/16/24 08:41 Cyanocobalamin 500 Mcg Tablet PO 500 mcg DAILY NILSA Administration Dextrose 12.5 gm 07/15/24 07:43 Dextrose 50% 25 Gm/50 Ml Syringe IV PUSH PRN PRN Hypoglycemia Protocol Divalproex Sodium 1,500 mg 07/15/24 21:00 07/15/24 19:[address] 250 Mg Tabec PO 1,500 mg HS NILSA Administration Enoxaparin Sodium 40 mg 07/15/24 09:00 07/16/24 08:41 Enoxaparin 40 Mg/0.4 Ml Syringe SUB-Q 40 mg Q12HR NILSA Administration Furosemide 40 mg 07/15/24 09:00 07/16/24 08:42 Furosemide 40 Mg Tablet PO 40 mg DAILY NILSA Administration Glucagon 1 mg 07/15/24 07:43 Glucagon For Inj 1 Mg Vial IM PRN PRN Hypoglycemia Protocol Glucose 15 gm 07/15/24 07:43 Glucose Oral Gel 15 Gm Of Glucse In 37.5 Gm Tube PO PRN PRN Hypoglycemia Protocol Guaifenesin 600 mg 07/15/24 07:40 07/16/24 15:01 Guaifenesin 200 Mg/10 Ml Udc PO 600 mg BID PRN Administration cough Guaifenesin 600 mg 07/15/24 09:00 07/16/24 08:42 Guaifenesin 12 Hr 600 Mg Tabcr PO 600 mg Q12HR NILSA Administration Cefepime HCl 2 gm in 50 mls @ 100 mls/hr 07/15/24 04:00 07/16/24 11:51 Maxipime 2 Gm/Ns 50 Ml IVPB 100 mls/hr Q8H NILSA Administration Doxycycline Hyclate 100 mg in 100 mls @ 100 mls/hr 07/15/24 11:00 07/16/24 11:52 Vibramycin 100 Mg/Ns 100 Ml IVPB 100 mls/hr Q12H NILSA Administration Dextrose 1,000 mls @ 100 mls/hr 07/15/24 07:43 Dextrose 5% 1,000 Ml IVPB PRN PRN Hypoglycemia Protocol Dextrose/Sodium Chloride 1,000 mls @ 100 mls/hr 07/16/24 09:40 07/16/24 11:51 Dextrose 5% Sodium Chloride 0.9% IV CONT 100 mls/hr .Q10H NILSA Administration Vancomycin HCl 1,500 mg in 500 mls @ 250 mls/hr 07/16/24 13:00 07/16/24 13:37 Vancomycin 1,500 Mg/Ns 500 Ml IVPB 250 mls/hr Q18H NILSA Administration Levothyroxine Sodium 125 mcg 07/15/24 07:50 07/16/24 05:07 Levothyroxine Sodium 125 Mcg Tablet PO 125 mcg DAILY@0630 NILSA Administration [place] Carbonate 300 mg 07/15/24 09:00 07/15/24 14:34 [place] Carbonate 300 Mg Capsule PO 300 mg 0900,1400,2100 NILSA Administration Lorazepam 1 mg 07/15/24 07:40 07/16/24 08:42 Lorazepam (*Crx) 1 Mg Tablet PO 1 mg BID PRN Administration anxiety Losartan Potassium 50 mg 07/15/24 09:00 07/16/24 16:57 Losartan Potassium 50 Mg Tablet PO 50 mg BID NILSA Administration Metformin HCl 500 mg 07/15/24 08:00 07/16/24 16:57 Metformin Hcl 500 Mg Tablet PO 500 mg BIDWM NILSA Administration Metoprolol Succinate 12.5 mg 07/15/24 09:00 07/16/24 08:42 Metoprolol Succinate Ext Rel 12.5 Mg Tabcr PO 12.5 mg DAILY NILSA Administration Miscellaneous Information 0 each 07/15/24 00:01 Brexpiprazole (Rexulti) Is Nonformulary - Patient Is Also On Olanzipine (Therapeutic Dupli XX 08/14/24 00:00 CLARIFY NILSA Multivitamins Therapeutic 1 tablet 07/15/24 09:00 07/16/24 08:41 Multivitamins Therapeutic Tab (*Bkc) PO 1 tablet DAILY NILSA Administration Non-Formulary Medication 0.5 mg 07/15/24 07:45 Brexpiprazole [Rexulti] PO 08/14/24 07:44 .q12hr NILSA Olanzapine 10 mg 07/15/24 07:50 07/16/24 13:37 Olanzapine 5 Mg Tablet PO 10 mg Q8HR NILSA Administration Olanzapine 10 mg 07/15/24 08:08 07/16/24 08:41 Olanzapine 10 Mg Inj Vial IM 10 mg Q4HR PRN Administration delerium Pantoprazole Sodium 20 mg 07/15/24 09:00 07/16/24 08:42 Pantoprazole Sod Sesquihydrate 20 Mg Tab PO 20 mg DAILY NILSA Administration Polyethylene Glycol 17 gm 07/15/24 07:40 Polyethylene Glycol 3350 17 Gm Powd.Pack PO BID PRN constipation Potassium Chloride 10 meq 07/15/24 09:00 07/16/24 08:43 Potassium Chloride 10 Meq Er Tablet PO 10 meq DAILY NILSA Administration Senna 8.6 mg 07/15/24 09:00 07/16/24 08:42 Sennosides 8.6 Mg Tablet PO 8.6 mg DAILY NILSA Administration Trazodone HCl 50 mg 07/15/24 21:00 07/15/24 19:50 Trazodone Hcl 50 Mg Tablet PO 50 mg HS NILSA Administration Vitamin D 2,000 units 07/15/24 09:00 07/16/24 08:42 Cholecalciferol 1,000 Units Tablet PO 2,000 units DAILY NILSA Administration Radiology Results: ITS Impressions Chest/Abdomen/Pelvis CT 07/14/24 23:37 IMPRESSION: CHEST: 1. No evidence of pulmonary embolism. 2. Left basilar pneumonia. Left minimal pleural effusion. Minimal right base pneumonia. 3. Slightly enlarged lymph nodes in the paratracheal and precarinal area. 4. Tracheobronchomalacia. ABDOMEN/PELVIS: 1. No evidence of appendicitis, diverticulitis or intestinal obstruction. 2. Atrophic pancreas. 3. Right inguinal hernia with fat content. Chest X-Ray 07/15/24 17:55 IMPRESSION: Unchanged pulmonary opacities, likely representing bilateral pneumonia, worse on the left, with a possible component of aspiration. Labs Labs: Laboratory Results - last 24 hr 07/15/24 07/16/24 07/16/24 17:01 01:05 04:21 WBC 16.5 H RBC 2.90 L Hgb 8.9 L Hct 29.3 L MCV 101.0 H MCH 30.7 MCHC 30.4 L RDW 13.4 Plt Count 207 MPV 13.0 H Sodium 137 Potassium 4.3 Chloride 102 Carbon Dioxide 29 Anion Gap 6 BUN 20 Creatinine 1.35 H Estim Creat Clear Calc 76 Estimated GFR 54 L Glucose 123 H POC Capillary Glucose 127 H Calcium 8.5 Magnesium 2.1 Vancomycin Trough [place] 1.3 H* 1.3 H* 07/16/24 07/16/24 07/16/24 06:04 11:46 11:54 WBC RBC Hgb Hct MCV MCH MCHC RDW Plt Count MPV Sodium Potassium Chloride Carbon Dioxide Anion Gap BUN Creatinine Estim Creat Clear Calc Estimated GFR Glucose POC Capillary Glucose 117 H 161 H Calcium Magnesium Vancomycin Trough 13.0 [place]
[2024-07-16 18:39] LABS: Glucose Point of Care 148 mg/dl (65-105)
[2024-07-16] MEDS: traZODone HCL 50 MG TABLET PO (20:43)
[2024-07-16] MEDS: ACETAMINOPHEN 500 MG TABLET 1000 MG PO (20:43)
[2024-07-16] MEDS: DIVALPROEX SODIUM DR 250 MG TABEC 1500 MG PO (20:44)
[2024-07-16] MEDS: BENZOCAINE/MENTHOL (*BKC) 18 EA LOZENGE 1 LOZENGE PO (22:09)
[2024-07-17] VITALS (12 sets, daily range): BP systolic 118–167; BP diastolic 60–95; PULSE 66–99; RESP 16–20; TEMP 36.2–36.7; O2SAT 92–99
[2024-07-17 01:34] LABS: Glucose Point of Care 202 mg/dl (65-105)
[2024-07-17] MEDS: CEFEPIME 2 GM/NS 50 ML 2 GM/50 ML BAG IVPB ×3 (02:59→19:54)
[2024-07-17] MEDS: DEXTROSE 5%/0.9% SOD CHL 1,000 ML 100 ML IV CONT ×2 (03:00→20:31)
[2024-07-17 04:45] LABS: Hematocrit 30.1 % (42.0-52.0); Mean Corpuscular HGB Conc 29.9 g/dl (32-36); Mean Corpuscular Hemoglobin 30.5 pg (26-34); Mean Platelet Volume 12.8 fl (7.4-10.4); Platelet Count Result 217 k/mm3 (150-375); Red Blood Count 2.95 M/mm3 (4.6-6.20); Red Cell Distribution Width 13.5 % (11.5-14.5); White Blood Count 15.4 K/mm3 (4.5-10.0)
[2024-07-17 04:58] LABS: Anion Gap 5 mmol/L (4-12); Blood Urea Nitrogen 14 mg/dL (9-20); Calcium 8.3 mg/dL (8.4-10.2); Carbon Dioxide 30 mmol/L (22-30); Chloride 104 mmol/L (98-107); Estimated CRCL calculation 93 ml/min; Estimated Glomerular Filt Rate > 60; Glucose 164 mg/dL (65-110); Magnesium 1.9 mg/dL (1.6-2.3); Potassium 4.1 mmol/L (3.4-5.0); Sodium 139 mmol/L (137-145)
[2024-07-17] MEDS: LEVOTHYROXINE SODIUM 125 MCG TABLET PO (05:57)
[2024-07-17] MEDS: OLANZapine 5 MG TABLET 10 MG PO ×3 (05:57→21:10)
[2024-07-17] MEDS: VANCOMYCIN 1,500 MG/NS 500 ML 1,500 MG/500 ML BAG 250 MG IVPB (07:28)
[2024-07-17] MEDS: POTASSIUM CHLORIDE 10 MEQ ER TABLET PO (08:07)
[2024-07-17] MEDS: MULTIVITAMINS THERAPEUTIC TAB (*BKC) 1 TABLET PO (08:08)
[2024-07-17] MEDS: ATORVASTATIN 20 MG TABLET PO (08:08)
[2024-07-17] MEDS: CHOLECALCIFEROL 1,000 UNITS TABLET 2000 UNITS PO (08:08)
[2024-07-17] MEDS: CYANOCOBALAMIN 500 MCG TABLET PO (08:08)
[2024-07-17] MEDS: PANTOPRAZOLE SOD SESQUIHYDRATE 20 MG TAB PO (08:08)
[2024-07-17] MEDS: METOPROLOL SUCCINATE EXT REL 12.5 MG TABCR PO (08:08)
[2024-07-17] MEDS: metFORMIN HCL 500 MG TABLET PO ×2 (08:08→17:09)
[2024-07-17] MEDS: ENOXAPARIN 40 MG/0.4 ML SYRINGE SUB-Q ×2 (08:08→20:01)
[2024-07-17] MEDS: guaiFENesin 12 HR 600 MG TABCR PO ×2 (08:08→20:01)
[2024-07-17] MEDS: LOSARTAN POTASSIUM 50 MG TABLET PO ×2 (08:08→17:09)
[2024-07-17] MEDS: SENNOSIDES 8.6 MG TABLET PO (08:08)
[2024-07-17] MEDS: FUROSEMIDE 40 MG TABLET PO (08:08)
[2024-07-17] MEDS: amLODIPine BESYLATE 5 MG TABLET PO (08:08)
[2024-07-17] MEDS: cloNIDine HCL 0.1 MG TABLET PO ×2 (08:08→20:01)
[2024-07-17] MEDS: ASPIRIN 81 MG ENTERIC TABLET PO (08:08)
--- NOTE | 2024-07-17 09:17 | PCPTNOTE ---
910- pt in bed, refused to sit at edge of bed or get OOB-- stated, he was fearful of falling.
[2024-07-17] MEDS: guaiFENesin 200 MG/10 ML UDC 600 MG PO ×2 (11:29→19:54)
[2024-07-17] MEDS: DOXYCYCLINE 100 MG/NS 100 ML 100 MG/100 ML BAG IVPB ×2 (11:29→22:29)
[2024-07-17 12:06] LABS: Glucose Point of Care 160 mg/dl (65-105)
[2024-07-17] MEDS: LITHIUM CARBONATE 300 MG CAPSULE PO ×2 (13:12→20:01)
[2024-07-17] MEDS: metroNIDAZOLE 500 MG/ISO 100ML 500 MG/100 ML BAG 100 MG IVPB ×2 (14:00→21:14)
--- NOTE | 2024-07-17 14:44 | PM.IMPN ---
Progress Note: A&P Assessment and Plan (1) Pneumonia: Code(s): J18.9 - Pneumonia, unspecified organism Status: Acute (2) Hypoxic respiratory failure: Code(s): J96.91 - Respiratory failure, unspecified with hypoxia Status: Acute Plan patient remains clinically stable however patient to continue to have agitation and yelling, on 07/16 patient had bedside swallow study, speech pathologist was quite concern as patient does not follow instruction, high risk of dysphagia and chocking recommended bite size meals, patient white counts are tending patient down to 15.4 compare to 22.7 upon arrival, MRSA nasal swab is negative, patient has pneumonia and being treated with Cefepime, doxycycline and vancomycin, will dc vancomycin , and concern patient may have aspiration pneumonia, will add Flagyl, also patient with bipolar taking his lithium upon arrival his levels are above normal, held his lithium and today his lithium levels are normal, will resume lithium. for pneumonia, patient is treated with Cefepime, doxycycline and vancomycin, will continue to monitor, Subjective Date/time seen: 07/17/24 14:44 Interval history: patient is resident of [place] with psychiatric illness was sent to ER with c/o of shortness of breath, patient is poor historian, stats feels better now and not as short of breath, patient had CT scan of Chest and abdomen, No evidence of pulmonary embolism, Left basilar pneumonia. Left minimal pleural effusion. Minimal right base pneumonia. Slightly enlarged lymph nodes in the paratracheal and precarinal area.Tracheobronchomalacia. No evidence of appendicitis, diverticulitis or intestinal obstruction.Atrophic pancreas.Right inguinal hernia with fat content. patient remains clinically stable however patient to continue to have agitation and yelling, on 07/16 patient had bedside swallow study, speech pathologist was quite concern as patient does not follow instruction, high risk of dysphagia and chocking recommended bite size meals, patient white counts are tending patient down to 15.4 compare to 22.7 upon arrival, MRSA nasal swab is negative, patient has pneumonia and being treated with Cefepime, doxycycline and vancomycin, will dc vancomycin , and concern patient may have aspiration pneumonia, will add Flagyl, also patient with bipolar taking his lithium upon arrival his levels are above normal, held his lithium and today his lithium levels are normal, will resume lithium. Exam Narrative: Morbidly obese BMI of 44 Patient is comfortable, NAD HEENT: eyes are clear and none icteric LUNGS: Bilateral fair entry with rhonchi HEART: RR S1S2 ABD: BS+, Soft and nontender Lower extremities: no edema SKIN: nonjaundiced Neuro: grossly intact. Objective Data Vital Signs Vital Signs: Vital Signs - 24 hr 07/16/24 15:34 07/16/24 16:00 07/16/24 16:00 Temperature 36.5 C Pulse Rate 85 76 Respiratory Rate 17 Blood Pressure 132/64 Pulse Oximetry 91 96 Oxygen Delivery Nasal Cannula Oxygen Flow Rate 1 07/16/24 20:00 07/16/24 20:00 07/16/24 23:11 Temperature 36.2 C L Pulse Rate 92 82 Respiratory Rate 16 Blood Pressure 128/73 Pulse Oximetry 91 93 Oxygen Delivery High Flow Therapy with Na Oxygen Flow Rate 4 07/17/24 00:00 07/17/24 02:35 07/17/24 04:00 Temperature 36.2 C L Pulse Rate 74 86 73 Respiratory Rate 18 Blood Pressure 138/72 Pulse Oximetry 99 Oxygen Delivery Oxygen Flow Rate 07/17/24 06:15 07/17/24 08:00 07/17/24 08:00 Temperature 36.2 C L 36.2 C L Pulse Rate 66 81 Respiratory Rate 16 20 Blood Pressure 118/60 149/83 H Pulse Oximetry 95 96 99 Oxygen Delivery Nasal Cannula Oxygen Flow Rate 2 07/17/24 08:08 07/17/24 08:18 Temperature Pulse Rate 78 Respiratory Rate Blood Pressure Pulse Oximetry Oxygen Delivery Nasal Cannula Oxygen Flow Rate 2 Intake/Output Intake/Output: Intake & Output 07/14/24 07/15/24 07/16/24 07/17/24 23:59 23:59 23:59 23:59 Intake Total 3400 4946 3134 850 Output Total 1500 5600 2200 Balance 3400 4309 -[id number] -2417 Meds/Results Medications: Active Medications Generic Name Dose Route Start Last Admin Trade Name Freq PRN Reason Stop Dose Admin Acetaminophen 1,000 mg 07/15/24 07:40 07/16/24 20:43 Acetaminophen 500 Mg Tablet PO 1,000 mg Q6H PRN Administration pain (scale score 1-3) Al Hydrox/Mg Hydrox/Simethicone 30 ml 07/15/24 07:40 07/15/24 11:07 Mag Hydrox/Al Hydrox/Simeth 30 Ml Udc PO 30 ml TID PRN Administration indigestion Albuterol/Ipratropium 3 ml 07/17/24 14:00 Ipratropium 0.5 Mg/Albuterol Sulfate 2.5 Mg Ampul.Neb 3 Ml INHALATION Q6HRT NILSA Amlodipine Besylate 5 mg 07/15/24 09:00 07/17/24 08:08 Amlodipine Besylate 5 Mg Tablet PO 5 mg DAILY NILSA Administration Aspirin 81 mg 07/15/24 09:00 07/17/24 08:08 Aspirin 81 Mg Enteric Tablet PO 81 mg DAILY NILSA Administration Atorvastatin Calcium 20 mg 07/15/24 09:00 07/17/24 08:08 Atorvastatin 20 Mg Tablet PO 20 mg DAILY NILSA Administration Benzocaine 1 lozenge 07/16/24 21:30 07/16/24 22:09 Benzocaine/Menthol (*Bkc) 18 Ea Lozenge PO 1 lozenge PRN PRN Administration Sore Throat Clonidine HCl 0.1 mg 07/15/24 09:00 07/17/24 08:08 Clonidine Hcl 0.1 Mg Tablet PO 0.1 mg Q12HR NILSA Administration Cyanocobalamin 500 mcg 07/15/24 09:00 07/17/24 08:08 Cyanocobalamin 500 Mcg Tablet PO 500 mcg DAILY NILSA Administration Dextrose 12.5 gm 07/15/24 07:43 Dextrose 50% 25 Gm/50 Ml Syringe IV PUSH PRN PRN Hypoglycemia Protocol Divalproex Sodium 1,500 mg 07/15/24 21:00 07/16/24 20:[address] 250 Mg Tabec PO 1,500 mg HS NILSA Administration Enoxaparin Sodium 40 mg 07/15/24 09:00 07/17/24 08:08 Enoxaparin 40 Mg/0.4 Ml Syringe SUB-Q 40 mg Q12HR NILSA Administration Furosemide 40 mg 07/15/24 09:00 07/17/24 08:08 Furosemide 40 Mg Tablet PO 40 mg DAILY NILSA Administration Glucagon 1 mg 07/15/24 07:43 Glucagon For Inj 1 Mg Vial IM PRN PRN Hypoglycemia Protocol Glucose 15 gm 07/15/24 07:43 Glucose Oral Gel 15 Gm Of Glucse In 37.5 Gm Tube PO PRN PRN Hypoglycemia Protocol Guaifenesin 600 mg 07/15/24 07:40 07/17/24 11:29 Guaifenesin 200 Mg/10 Ml Udc PO 600 mg BID PRN Administration cough Guaifenesin 600 mg 07/15/24 09:00 07/17/24 08:08 Guaifenesin 12 Hr 600 Mg Tabcr PO 600 mg Q12HR NILSA Administration Cefepime HCl 2 gm in 50 mls @ 100 mls/hr 07/15/24 04:00 07/17/24 13:10 Maxipime 2 Gm/Ns 50 Ml IVPB 100 mls/hr Q8H NILSA Administration Doxycycline Hyclate 100 mg in 100 mls @ 100 mls/hr 07/15/24 11:00 07/17/24 11:29 Vibramycin 100 Mg/Ns 100 Ml IVPB 07/19/24 11:59 100 mls/hr Q12H NILSA Administration Dextrose 1,000 mls @ 100 mls/hr 07/15/24 07:43 Dextrose 5% 1,000 Ml IVPB PRN PRN Hypoglycemia Protocol Dextrose/Sodium Chloride 1,000 mls @ 100 mls/hr 07/16/24 09:40 07/17/24 03:00 Dextrose 5% Sodium Chloride 0.9% IV CONT 100 mls/hr .Q10H NILSA Administration Metronidazole 500 mg in 100 mls @ 100 mls/hr 07/17/24 13:00 Flagyl 500 Mg/Iso Soln 100 Ml IVPB Q8HR NILSA Levothyroxine Sodium 125 mcg 07/15/24 07:50 07/17/24 05:57 Levothyroxine Sodium 125 Mcg Tablet PO 125 mcg DAILY@0630 NILSA Administration [place] Carbonate 300 mg 07/15/24 09:00 07/17/24 13:12 [place] Carbonate 300 Mg Capsule PO 300 mg 0900,1400,2100 NILSA Administration Lorazepam 1 mg 07/15/24 07:40 07/16/24 08:42 Lorazepam (*Crx) 1 Mg Tablet PO 1 mg BID PRN Administration anxiety Losartan Potassium 50 mg 07/15/24 09:00 07/17/24 08:08 Losartan Potassium 50 Mg Tablet PO 50 mg BID NILSA Administration Metformin HCl 500 mg 07/15/24 08:00 07/17/24 08:08 Metformin Hcl 500 Mg Tablet PO 500 mg BIDWM NILSA Administration Metoprolol Succinate 12.5 mg 07/15/24 09:00 07/17/24 08:08 Metoprolol Succinate Ext Rel 12.5 Mg Tabcr PO 12.5 mg DAILY NILSA Administration Miscellaneous Information 0 each 07/15/24 00:01 Brexpiprazole (Rexulti) Is Nonformulary - Patient Is Also On Olanzipine (Therapeutic Dupli XX 08/14/24 00:00 CLARIFY NILSA Multivitamins Therapeutic 1 tablet 07/15/24 09:00 07/17/24 08:08 Multivitamins Therapeutic Tab (*Bkc) PO 1 tablet DAILY NILSA Administration Non-Formulary Medication 0.5 mg 07/15/24 07:45 Brexpiprazole [Rexulti] PO 08/14/24 07:44 .q12hr NILSA Olanzapine 10 mg 07/15/24 07:50 07/17/24 13:12 Olanzapine 5 Mg Tablet PO 10 mg Q8HR NILSA Administration Olanzapine 10 mg 07/15/24 08:08 07/16/24 08:41 Olanzapine 10 Mg Inj Vial IM 10 mg Q4HR PRN Administration delerium Pantoprazole Sodium 20 mg 07/15/24 09:00 07/17/24 08:08 Pantoprazole Sod Sesquihydrate 20 Mg Tab PO 20 mg DAILY NILSA Administration Polyethylene Glycol 17 gm 07/15/24 07:40 Polyethylene Glycol 3350 17 Gm Powd.Pack PO BID PRN constipation Potassium Chloride 10 meq 07/15/24 09:00 07/17/24 08:07 Potassium Chloride 10 Meq Er Tablet PO 10 meq DAILY NILSA Administration Senna 8.6 mg 07/15/24 09:00 07/17/24 08:08 Sennosides 8.6 Mg Tablet PO 8.6 mg DAILY NILSA Administration Trazodone HCl 50 mg 07/15/24 21:00 07/16/24 20:43 Trazodone Hcl 50 Mg Tablet PO 50 mg HS NILSA Administration Vitamin D 2,000 units 07/15/24 09:00 07/17/24 08:08 Cholecalciferol 1,000 Units Tablet PO 2,000 units DAILY NILSA Administration Radiology Results: ITS Impressions Chest/Abdomen/Pelvis CT 07/14/24 23:37 IMPRESSION: CHEST: 1. No evidence of pulmonary embolism. 2. Left basilar pneumonia. Left minimal pleural effusion. Minimal right base pneumonia. 3. Slightly enlarged lymph nodes in the paratracheal and precarinal area. 4. Tracheobronchomalacia. ABDOMEN/PELVIS: 1. No evidence of appendicitis, diverticulitis or intestinal obstruction. 2. Atrophic pancreas. 3. Right inguinal hernia with fat content. Chest X-Ray 07/15/24 17:55 IMPRESSION: Unchanged pulmonary opacities, likely representing bilateral pneumonia, worse on the left, with a possible component of aspiration. Labs Labs: Laboratory Results - last 24 hr 07/16/24 07/17/24 07/17/24 18:03 00:38 04:26 WBC 15.4 H RBC 2.95 L Hgb 9.0 L Hct 30.1 L MCV 102.0 H MCH 30.5 MCHC 29.9 L RDW 13.5 Plt Count 217 MPV 12.8 H Sodium 139 Potassium 4.1 Chloride 104 Carbon Dioxide 30 Anion Gap 5 BUN 14 D Creatinine 1.09 Estim Creat Clear Calc 93 Estimated GFR > 60 Glucose 164 H POC Capillary Glucose 148 H 202 H Calcium 8.3 L Magnesium 1.9 [place] 07/17/24 07/17/24 08:47 11:57 WBC RBC Hgb Hct MCV MCH MCHC RDW Plt Count MPV Sodium Potassium Chloride Carbon Dioxide Anion Gap BUN Creatinine Estim Creat Clear Calc Estimated GFR Glucose POC Capillary Glucose 160 H Calcium Magnesium [place] 1.0
[2024-07-17] MEDS: LORazepam (*CRX) 1 MG TABLET PO (19:55)
[2024-07-17] MEDS: traZODone HCL 50 MG TABLET PO (20:01)
[2024-07-17] MEDS: DIVALPROEX SODIUM DR 250 MG TABEC 1500 MG PO (20:01)
[2024-07-17] MEDS: IPRATROPIUM 0.5 MG/ALBUTEROL SULFATE 2.5 MG AMPUL.NEB 3 ML INHALATION (20:48)
[2024-07-18] VITALS (19 sets, daily range): BP systolic 120–148; BP diastolic 61–79; PULSE 69–105; RESP 18–20; TEMP 36.2–36.7; O2SAT 89–99
[2024-07-18] MEDS: MAG HYDROX/AL HYDROX/SIMETH 30 ML UDC PO (00:25)
[2024-07-18] MEDS: IPRATROPIUM 0.5 MG/ALBUTEROL SULFATE 2.5 MG AMPUL.NEB 3 ML INHALATION ×4 (02:55→20:17)
[2024-07-18] MEDS: CEFEPIME 2 GM/NS 50 ML 2 GM/50 ML BAG IVPB ×3 (03:52→20:20)
[2024-07-18] MEDS: metroNIDAZOLE 500 MG/ISO 100ML 500 MG/100 ML BAG 100 MG IVPB ×3 (05:31→22:03)
[2024-07-18 05:32] LABS: Hemoglobin 9.5 g/dL (14.0-18.0); Mean Corpuscular HGB Conc 30.6 g/dl (32-36); Mean Corpuscular Hemoglobin 30.7 pg (26-34); Mean Corpuscular Volume 100.3 fl (80-100); Mean Platelet Volume 12.3 fl (7.4-10.4); Platelet Count Result 254 k/mm3 (150-375); Red Blood Count 3.09 M/mm3 (4.6-6.20); Red Cell Distribution Width 13.5 % (11.5-14.5); White Blood Count 14.8 K/mm3 (4.5-10.0)
[2024-07-18 05:44] LABS: Glucose Point of Care 185 mg/dl (65-105)
[2024-07-18 05:50] LABS: Lithium 0.8 mmol/L (0.6-1.2)
[2024-07-18 05:53] LABS: Anion Gap 5 mmol/L (4-12); Blood Urea Nitrogen 10 mg/dL (9-20); Calcium 8.3 mg/dL (8.4-10.2); Carbon Dioxide 29 mmol/L (22-30); Chloride 106 mmol/L (98-107); Estimated CRCL calculation 114 ml/min; Estimated Glomerular Filt Rate > 60; Glucose 199 mg/dL (65-110); Magnesium 1.7 mg/dL (1.6-2.3); Potassium 3.9 mmol/L (3.4-5.0); Sodium 140 mmol/L (137-145)
[2024-07-18] MEDS: OLANZapine 5 MG TABLET 10 MG PO ×3 (06:09→22:03)
[2024-07-18] MEDS: LEVOTHYROXINE SODIUM 125 MCG TABLET PO (06:09)
[2024-07-18] MEDS: ASPIRIN 81 MG ENTERIC TABLET PO (09:11)
[2024-07-18] MEDS: amLODIPine BESYLATE 5 MG TABLET PO (09:11)
[2024-07-18] MEDS: METOPROLOL SUCCINATE EXT REL 12.5 MG TABCR PO (09:11)
[2024-07-18] MEDS: ATORVASTATIN 20 MG TABLET PO (09:11)
[2024-07-18] MEDS: FUROSEMIDE 40 MG TABLET PO (09:11)
[2024-07-18] MEDS: LOSARTAN POTASSIUM 50 MG TABLET PO ×2 (09:12→17:03)
[2024-07-18] MEDS: SENNOSIDES 8.6 MG TABLET PO (09:12)
[2024-07-18] MEDS: metFORMIN HCL 500 MG TABLET PO ×2 (09:12→17:03)
[2024-07-18] MEDS: guaiFENesin 12 HR 600 MG TABCR PO ×2 (09:12→20:27)
[2024-07-18] MEDS: ENOXAPARIN 40 MG/0.4 ML SYRINGE SUB-Q ×2 (09:12→20:27)
[2024-07-18] MEDS: POTASSIUM CHLORIDE 10 MEQ ER TABLET PO (09:12)
[2024-07-18] MEDS: CYANOCOBALAMIN 500 MCG TABLET PO (09:12)
[2024-07-18] MEDS: cloNIDine HCL 0.1 MG TABLET PO ×2 (09:12→20:27)
[2024-07-18] MEDS: PANTOPRAZOLE SOD SESQUIHYDRATE 20 MG TAB PO (09:12)
[2024-07-18] MEDS: CHOLECALCIFEROL 1,000 UNITS TABLET 2000 UNITS PO (09:12)
[2024-07-18] MEDS: MULTIVITAMINS THERAPEUTIC TAB (*BKC) 1 TABLET PO (09:12)
[2024-07-18] MEDS: LITHIUM CARBONATE 300 MG CAPSULE PO ×3 (09:17→20:35)
[2024-07-18] MEDS: DEXTROSE 5%/0.9% SOD CHL 1,000 ML 100 ML IV CONT (09:17)
[2024-07-18] MEDS: DOXYCYCLINE 100 MG/NS 100 ML 100 MG/100 ML BAG IVPB ×2 (11:05→23:04)
[2024-07-18] MEDS: ACETAMINOPHEN 500 MG TABLET 1000 MG PO (12:11)
[2024-07-18 12:16] LABS: Glucose Point of Care 216 mg/dl (65-105)
--- NOTE | 2024-07-18 13:47 | PCPTNOTE ---
PT evaluation attempted, pt too lethargic to participate. When therapist attempted to wake him up to begin assessment, he opened his eyes and adamantly refused to perform therapy despite offered to use a machine/equipment to transfer to a recliner, pt repeatedly said no and closed his eyes again. PT eval not appropriate at this time, nursing aware. - RR, PT 13:49
--- NOTE | 2024-07-18 14:10 | PM.IMPN ---
Progress Note: A&P Assessment and Plan (1) Pneumonia: Code(s): J18.9 - Pneumonia, unspecified organism Status: Acute (2) Hypoxic respiratory failure: Code(s): J96.91 - Respiratory failure, unspecified with hypoxia Status: Acute Plan patient remains clinically stable however patient to continue to have agitation and yelling, on 07/16 patient had bedside swallow study, speech pathologist was quite concern as patient does not follow instruction, high risk of dysphagia and chocking recommended bite size meals, patient white counts are tending patient down to 15.4 compare to 22.7 upon arrival, MRSA nasal swab is negative, patient has pneumonia and being treated with Cefepime, doxycycline and vancomycin, will dc vancomycin , and concern patient may have aspiration pneumonia, will add Flagyl, also patient with bipolar taking his lithium upon arrival his levels are above normal, held his lithium and today his lithium levels are normal, will resume lithium. today patient is more calm, his white counts trending down, however his lithium levels are below normal, will continue his home dose and monitor, will CXR in the morning and plan. for pneumonia, patient is treated with Cefepime, doxycycline and vancomycin, will continue to monitor, Subjective Date/time seen: 07/18/24 14:10 Interval history: patient is resident of [place] with psychiatric illness was sent to ER with c/o of shortness of breath, patient is poor historian, stats feels better now and not as short of breath, patient had CT scan of Chest and abdomen, No evidence of pulmonary embolism, Left basilar pneumonia. Left minimal pleural effusion. Minimal right base pneumonia. Slightly enlarged lymph nodes in the paratracheal and precarinal area.Tracheobronchomalacia. No evidence of appendicitis, diverticulitis or intestinal obstruction.Atrophic pancreas.Right inguinal hernia with fat content. patient remains clinically stable however patient to continue to have agitation and yelling, on 07/16 patient had bedside swallow study, speech pathologist was quite concern as patient does not follow instruction, high risk of dysphagia and chocking recommended bite size meals, patient white counts are tending patient down to 15.4 compare to 22.7 upon arrival, MRSA nasal swab is negative, patient has pneumonia and being treated with Cefepime, doxycycline and vancomycin, will dc vancomycin , and concern patient may have aspiration pneumonia, will add Flagyl, also patient with bipolar taking his lithium upon arrival his levels are above normal, held his lithium and today his lithium levels are normal, will resume lithium. today patient is more calm, his white counts trending down, however his lithium levels are below normal, will continue his home dose and monitor, will CXR in the morning and plan. Exam Narrative: Morbidly obese BMI of 44 Patient is comfortable, NAD HEENT: eyes are clear and none icteric LUNGS: Bilateral fair entry with rhonchi HEART: RR S1S2 ABD: BS+, Soft and nontender Lower extremities: no edema SKIN: nonjaundiced Neuro: grossly intact. Objective Data Vital Signs Vital Signs: Vital Signs - 24 hr 07/17/24 16:00 07/17/24 16:00 07/17/24 20:00 Temperature 36.7 C Pulse Rate 80 90 90 Respiratory Rate 20 20 Blood Pressure 160/80 H Pulse Oximetry 96 96 Oxygen Delivery Nasal Cannula Oxygen Flow Rate 2 Fraction of Inspired Oxygen 40 07/17/24 20:00 07/17/24 20:00 07/17/24 20:48 Temperature 36.5 C Pulse Rate 91 85 86 Respiratory Rate 20 20 Blood Pressure 141/95 H Pulse Oximetry 96 Oxygen Delivery Oxygen Flow Rate Fraction of Inspired Oxygen 07/17/24 20:54 07/17/24 20:58 07/18/24 00:00 Temperature 36.5 C Pulse Rate 86 84 79 Respiratory Rate 20 20 Blood Pressure 126/76 Pulse Oximetry 92 94 Oxygen Delivery Nasal Cannula Oxygen Flow Rate 2 Fraction of Inspired Oxygen 07/18/24 00:08 07/18/24 02:55 07/18/24 03:02 Temperature Pulse Rate 78 105 H 92 Respiratory Rate 20 20 Blood Pressure Pulse Oximetry Oxygen Delivery Oxygen Flow Rate Fraction of Inspired Oxygen 07/18/24 03:40 07/18/24 04:00 07/18/24 08:00 Temperature 36.7 C Pulse Rate 89 80 80 Respiratory Rate 20 18 Blood Pressure 139/61 137/79 Pulse Oximetry 99 97 Oxygen Delivery Oxygen Flow Rate Fraction of Inspired Oxygen 07/18/24 08:51 07/18/24 08:51 07/18/24 09:11 Temperature Pulse Rate 84 87 Respiratory Rate 20 Blood Pressure Pulse Oximetry 91 Oxygen Delivery Nasal Cannula Oxygen Flow Rate 1 Fraction of Inspired Oxygen 07/18/24 09:15 07/18/24 09:15 07/18/24 12:00 Temperature 36.2 C L Pulse Rate 69 71 Respiratory Rate 20 Blood Pressure 120/63 Pulse Oximetry 98 89 L Oxygen Delivery Nasal Cannula Oxygen Flow Rate 2 Fraction of Inspired Oxygen Intake/Output Intake/Output: Intake & Output 07/15/24 07/16/24 07/17/24 07/18/24 23:59 23:59 23:59 23:59 Intake Total 4946 7633 8570 3454 Output Total 3310 0700 9689 1950 Balance 6723 -5869 -104 1504 Meds/Results Medications: Active Medications Generic Name Dose Route Start Last Admin Trade Name Freq PRN Reason Stop Dose Admin Acetaminophen 1,000 mg 07/15/24 07:40 07/18/24 12:11 Acetaminophen 500 Mg Tablet PO 1,000 mg Q6H PRN Administration pain (scale score 1-3) Al Hydrox/Mg Hydrox/Simethicone 30 ml 07/15/24 07:40 07/18/24 00:25 Mag Hydrox/Al Hydrox/Simeth 30 Ml Udc PO 30 ml TID PRN Administration indigestion Albuterol/Ipratropium 3 ml 07/17/24 14:00 07/18/24 08:49 Ipratropium 0.5 Mg/Albuterol Sulfate 2.5 Mg Ampul.Neb 3 Ml INHALATION 3 ml Q6HRT NILSA Administration Amlodipine Besylate 5 mg 07/15/24 09:00 07/18/24 09:11 Amlodipine Besylate 5 Mg Tablet PO 5 mg DAILY NILSA Administration Aspirin 81 mg 07/15/24 09:00 07/18/24 09:11 Aspirin 81 Mg Enteric Tablet PO 81 mg DAILY NILSA Administration Atorvastatin Calcium 20 mg 07/15/24 09:00 07/18/24 09:11 Atorvastatin 20 Mg Tablet PO 20 mg DAILY NILSA Administration Benzocaine 1 lozenge 07/16/24 21:30 07/16/24 22:09 Benzocaine/Menthol (*Bkc) 18 Ea Lozenge PO 1 lozenge PRN PRN Administration Sore Throat Clonidine HCl 0.1 mg 07/15/24 09:00 07/18/24 09:12 Clonidine Hcl 0.1 Mg Tablet PO 0.1 mg Q12HR NILSA Administration Cyanocobalamin 500 mcg 07/15/24 09:00 07/18/24 09:12 Cyanocobalamin 500 Mcg Tablet PO 500 mcg DAILY NILSA Administration Dextrose 12.5 gm 07/15/24 07:43 Dextrose 50% 25 Gm/50 Ml Syringe IV PUSH PRN PRN Hypoglycemia Protocol Divalproex Sodium 1,500 mg 07/15/24 21:00 07/17/24 20:[address] 250 Mg Tabec PO 1,500 mg HS NILSA Administration Enoxaparin Sodium 40 mg 07/15/24 09:00 07/18/24 09:12 Enoxaparin 40 Mg/0.4 Ml Syringe SUB-Q 40 mg Q12HR NILSA Administration Furosemide 40 mg 07/15/24 09:00 07/18/24 09:11 Furosemide 40 Mg Tablet PO 40 mg DAILY NILSA Administration Glucagon 1 mg 07/15/24 07:43 Glucagon For Inj 1 Mg Vial IM PRN PRN Hypoglycemia Protocol Glucose 15 gm 07/15/24 07:43 Glucose Oral Gel 15 Gm Of Glucse In 37.5 Gm Tube PO PRN PRN Hypoglycemia Protocol Guaifenesin 600 mg 07/15/24 07:40 07/17/24 19:54 Guaifenesin 200 Mg/10 Ml Udc PO 600 mg BID PRN Administration cough Guaifenesin 600 mg 07/15/24 09:00 07/18/24 09:12 Guaifenesin 12 Hr 600 Mg Tabcr PO 600 mg Q12HR NILSA Administration Cefepime HCl 2 gm in 50 mls @ 100 mls/hr 07/15/24 04:00 07/18/24 12:41 Maxipime 2 Gm/Ns 50 Ml IVPB Infused Q8H NILSA Infusion Doxycycline Hyclate 100 mg in 100 mls @ 100 mls/hr 07/15/24 11:00 07/18/24 12:10 Vibramycin 100 Mg/Ns 100 Ml IVPB 07/19/24 11:59 Infused Q12H NILSA Infusion Dextrose 1,000 mls @ 100 mls/hr 07/15/24 07:43 Dextrose 5% 1,000 Ml IVPB PRN PRN Hypoglycemia Protocol Dextrose/Sodium Chloride 1,000 mls @ 100 mls/hr 07/16/24 09:40 07/18/24 12:11 Dextrose 5% Sodium Chloride 0.9% IV CONT Not Given .Q10H NILSA Metronidazole 500 mg in 100 mls @ 100 mls/hr 07/17/24 13:00 07/18/24 13:26 Flagyl 500 Mg/Iso Soln 100 Ml IVPB 100 mls/hr Q8HR NILSA Administration Levothyroxine Sodium 125 mcg 07/15/24 07:50 07/18/24 06:09 Levothyroxine Sodium 125 Mcg Tablet PO 125 mcg DAILY@0630 NILSA Administration [place] Carbonate 300 mg 07/15/24 09:00 07/18/24 13:25 [place] Carbonate 300 Mg Capsule PO 300 mg 0900,1400,2100 NILSA Administration Lorazepam 1 mg 07/15/24 07:40 07/17/24 19:55 Lorazepam (*Crx) 1 Mg Tablet PO 1 mg BID PRN Administration anxiety Losartan Potassium 50 mg 07/15/24 09:00 07/18/24 09:12 Losartan Potassium 50 Mg Tablet PO 50 mg BID NILSA Administration Metformin HCl 500 mg 07/15/24 08:00 07/18/24 09:12 Metformin Hcl 500 Mg Tablet PO 500 mg BIDWM NILSA Administration Metoprolol Succinate 12.5 mg 07/15/24 09:00 07/18/24 09:11 Metoprolol Succinate Ext Rel 12.5 Mg Tabcr PO 12.5 mg DAILY NILSA Administration Multivitamins Therapeutic 1 tablet 07/15/24 09:00 07/18/24 09:12 Multivitamins Therapeutic Tab (*Bkc) PO 1 tablet DAILY NILSA Administration Olanzapine 10 mg 07/15/24 07:50 07/18/24 13:25 Olanzapine 5 Mg Tablet PO 10 mg Q8HR NILSA Administration Olanzapine 10 mg 07/15/24 08:08 07/16/24 08:41 Olanzapine 10 Mg Inj Vial IM 10 mg Q4HR PRN Administration delerium Pantoprazole Sodium 20 mg 07/15/24 09:00 07/18/24 09:12 Pantoprazole Sod Sesquihydrate 20 Mg Tab PO 20 mg DAILY NILSA Administration Polyethylene Glycol 17 gm 07/15/24 07:40 Polyethylene Glycol 3350 17 Gm Powd.Pack PO BID PRN constipation Potassium Chloride 10 meq 07/15/24 09:00 07/18/24 09:12 Potassium Chloride 10 Meq Er Tablet PO 10 meq DAILY NILSA Administration Senna 8.6 mg 07/15/24 09:00 07/18/24 09:12 Sennosides 8.6 Mg Tablet PO 8.6 mg DAILY NILSA Administration Trazodone HCl 50 mg 07/15/24 21:00 07/17/24 20:01 Trazodone Hcl 50 Mg Tablet PO 50 mg HS NILSA Administration Vitamin D 2,000 units 07/15/24 09:00 07/18/24 09:12 Cholecalciferol 1,000 Units Tablet PO 2,000 units DAILY NILSA Administration Radiology Results: ITS Impressions Chest/Abdomen/Pelvis CT 07/14/24 23:37 IMPRESSION: CHEST: 1. No evidence of pulmonary embolism. 2. Left basilar pneumonia. Left minimal pleural effusion. Minimal right base pneumonia. 3. Slightly enlarged lymph nodes in the paratracheal and precarinal area. 4. Tracheobronchomalacia. ABDOMEN/PELVIS: 1. No evidence of appendicitis, diverticulitis or intestinal obstruction. 2. Atrophic pancreas. 3. Right inguinal hernia with fat content. Chest X-Ray 07/15/24 17:55 IMPRESSION: Unchanged pulmonary opacities, likely representing bilateral pneumonia, worse on the left, with a possible component of aspiration. Labs Labs: Laboratory Results - last 24 hr 07/18/24 07/18/24 07/18/24 03:49 04:44 12:07 WBC 14.8 H RBC 3.09 L Hgb 9.5 L Hct 31.0 L MCV 100.3 H MCH 30.7 MCHC 30.6 L RDW 13.5 Plt Count 254 MPV 12.3 H Sodium 140 Potassium 3.9 Chloride 106 Carbon Dioxide 29 Anion Gap 5 BUN 10 Creatinine 0.89 Estim Creat Clear Calc 114 Estimated GFR > 60 Glucose 199 H POC Capillary Glucose 185 H 216 H Calcium 8.3 L Magnesium 1.7 [place] 0.8
[2024-07-18] MEDS: guaiFENesin 200 MG/10 ML UDC 600 MG PO (18:39)
[2024-07-18] MEDS: traZODone HCL 50 MG TABLET PO (20:27)
[2024-07-18] MEDS: DIVALPROEX SODIUM DR 250 MG TABEC 1500 MG PO (20:28)
[2024-07-19] VITALS (14 sets, daily range): BP systolic 107–153; BP diastolic 46–80; PULSE 67–88; RESP 14–18; TEMP 36.4–36.8; O2SAT 92–98
[2024-07-19] MEDS: IPRATROPIUM 0.5 MG/ALBUTEROL SULFATE 2.5 MG AMPUL.NEB 3 ML INHALATION ×3 (01:58→13:55)
[2024-07-19 03:33] LABS: Glucose Point of Care 157 mg/dl (65-105)
[2024-07-19] MEDS: CEFEPIME 2 GM/NS 50 ML 2 GM/50 ML BAG IVPB (03:58)
[2024-07-19] MEDS: DEXTROSE 5%/0.9% SOD CHL 1,000 ML 100 ML IV CONT (03:59)
[2024-07-19 05:22] LABS: Hematocrit 29.7 % (42.0-52.0); Hemoglobin 9.1 g/dL (14.0-18.0); Mean Corpuscular HGB Conc 30.6 g/dl (32-36); Mean Corpuscular Hemoglobin 30.7 pg (26-34); Mean Corpuscular Volume 100.3 fl (80-100); Mean Platelet Volume 11.8 fl (7.4-10.4); Platelet Count Result 264 k/mm3 (150-375); Red Blood Count 2.96 M/mm3 (4.6-6.20); Red Cell Distribution Width 13.6 % (11.5-14.5); White Blood Count 15.4 K/mm3 (4.5-10.0)
[2024-07-19 05:31] LABS: Anion Gap 4 mmol/L (4-12); Blood Urea Nitrogen 9 mg/dL (9-20); Calcium 8.3 mg/dL (8.4-10.2); Carbon Dioxide 33 mmol/L (22-30); Chloride 103 mmol/L (98-107); Estimated CRCL calculation 115 ml/min; Estimated Glomerular Filt Rate > 60; Glucose 155 mg/dL (65-110); Magnesium 1.6 mg/dL (1.6-2.3); Potassium 4.1 mmol/L (3.4-5.0); Sodium 140 mmol/L (137-145)
[2024-07-19] MEDS: metroNIDAZOLE 500 MG/ISO 100ML 500 MG/100 ML BAG 100 MG IVPB (05:37)
[2024-07-19] MEDS: LEVOTHYROXINE SODIUM 125 MCG TABLET PO (05:37)
[2024-07-19] MEDS: OLANZapine 5 MG TABLET 10 MG PO (05:38)
[2024-07-19 05:41] LABS: Lithium 0.8 mmol/L (0.6-1.2)
[2024-07-19] MEDS: BENZOCAINE/MENTHOL (*BKC) 18 EA LOZENGE 1 LOZENGE PO (06:36)
[2024-07-19] MEDS: LOSARTAN POTASSIUM 50 MG TABLET PO (08:44)
[2024-07-19] MEDS: PANTOPRAZOLE SOD SESQUIHYDRATE 20 MG TAB PO (08:44)
[2024-07-19] MEDS: METOPROLOL SUCCINATE EXT REL 12.5 MG TABCR PO (08:44)
[2024-07-19] MEDS: cloNIDine HCL 0.1 MG TABLET PO (08:44)
[2024-07-19] MEDS: CYANOCOBALAMIN 500 MCG TABLET PO (08:44)
[2024-07-19] MEDS: metFORMIN HCL 500 MG TABLET PO (08:45)
[2024-07-19] MEDS: guaiFENesin 12 HR 600 MG TABCR PO (08:45)
[2024-07-19] MEDS: ENOXAPARIN 40 MG/0.4 ML SYRINGE SUB-Q (08:45)
[2024-07-19] MEDS: FUROSEMIDE 40 MG TABLET PO (08:45)
[2024-07-19] MEDS: SENNOSIDES 8.6 MG TABLET PO (08:45)
[2024-07-19] MEDS: amLODIPine BESYLATE 5 MG TABLET PO (08:45)
[2024-07-19] MEDS: ATORVASTATIN 20 MG TABLET PO (08:45)
[2024-07-19] MEDS: ASPIRIN 81 MG ENTERIC TABLET PO (08:45)
[2024-07-19] MEDS: POTASSIUM CHLORIDE 10 MEQ ER TABLET PO (08:45)
[2024-07-19] MEDS: MULTIVITAMINS THERAPEUTIC TAB (*BKC) 1 TABLET PO (08:45)
[2024-07-19] MEDS: CHOLECALCIFEROL 1,000 UNITS TABLET 2000 UNITS PO (08:45)
[2024-07-19] MEDS: guaiFENesin 200 MG/10 ML UDC 600 MG PO (08:46)
[2024-07-19] MEDS: LITHIUM CARBONATE 300 MG CAPSULE PO (08:49)
--- NOTE | 2024-07-19 10:14 | PCPTNOTE ---
Attempted therapy evaluation 1010, patient initially somewhat agreeable but with attempts to roll he states I don't want to do this . Will stop orders as patient has refused 3 days in a row.
[2024-07-19] MEDS: DOXYCYCLINE 100 MG/NS 100 ML 100 MG/100 ML BAG IVPB (10:55)
--- NOTE | 2024-07-19 12:33 | PM.DS ---
DS: Summary Time Spent with Patient Time attestation: Total time spent providing and/or coordinating discharge services: DS: Data Data Completed and Pending Labs on day of discharge: Labs from last 24 hours 07/19/24 07/18/24 04:55 00:25 WBC 15.4 H RBC 2.96 L Hgb 9.1 L Hct 29.7 L MCV 100.3 H MCH 30.7 MCHC 30.6 L RDW 13.6 Plt Count 264 MPV 11.8 H Sodium 140 Potassium 4.1 Chloride 103 Carbon Dioxide 33 H Anion Gap 4 BUN 9 Creatinine 0.89 Estim Creat Clear Calc 115 Estimated GFR > 60 Glucose 155 H POC Capillary Glucose 157 H Calcium 8.3 L Magnesium 1.6 [place] 0.8 Preliminary micro results at discharge 07/14/24 19:44 Blood Culture - Preliminary Blood Discharge Plan Discharge Attending physician on discharge: Jovanna Unger Discharging Clinician: Anthony Hu Patient Disposition: [place] Skilled Nursing/Asst Living Activity: as tolerated Diet: heart healthy Discharge Instructions: patient lithium levels are below normal, please monitor per your protocol, patient to follow up with his primary care provider as soon as possible. Patient Instructions: Antibiotic Form Patient Language: Indonesian Stand Alone Forms: General Discharge Information Follow-up/Referrals: Ankur,MD Shemar [Primary Care Provider] - Discharge Medications: New amoxicillin-pot clavulanate [Augmentin] 500-125 mg tablet 1 tablet PO Q8H Qty: 15 0RF metronidazole [Flagyl] 375 mg capsule 375 mg PO Q8H 105 Days Qty: 15 0RF Continued acetaminophen 500 mg capsule 1,000 mg PO Q6H PRN (Reason: pain (scale score 1-3)) amlodipine 5 mg tablet 5 mg PO DAILY@0630 aspirin [Adult Aspirin Regimen] 81 mg tablet,delayed release (DR/EC) 81 mg PO DAILY lorazepam 1 mg tablet 1 mg PO BID PRN (Reason: anxiety) atorvastatin 20 mg tablet 20 mg PO DAILY cholecalciferol (vitamin D3) [Vitamin D3] 50 mcg (2,000 unit) tablet 50 mcg PO DAILY clonidine HCl 0.1 mg tablet 0.1 mg PO Q12H cyanocobalamin (vitamin B-12) 500 mcg tablet 500 mcg PO DAILY multivitamin [Daily Multi-Vitamin] Tablet 1 tablet PO DAILY divalproex 500 mg tablet,delayed release (DR/EC) 1,500 mg PO HS furosemide 40 mg tablet 40 mg PO DAILY alum-mag hydroxide-simeth [Daisy-Lanta] 200-200-20 mg/5 mL suspension 30 ml PO TID PRN (Reason: indigestion) guaifenesin [Daisy-Tussin] 100 mg/5 mL liquid 600 mg PO BID PRN (Reason: cough) glucosamine sulfate 500 mg capsule 1,500 mg PO BID Rx Instructions: administer with meals guaifenesin 600 mg tablet extended release 12hr 600 mg PO Q12H ipratropium-albuterol 0.5 mg-3 mg(2.5 mg base)/3 mL solution for nebulization 3 ml inhalation Q6H PRN (Reason: shortness of breath) levothyroxine 125 mcg tablet 125 mcg PO DAILY lithium carbonate 300 mg capsule 300 mg PO .COMPLEX Rx Instructions: 300 mg orally; 1 capsule TID 0492-3084, 2773-9831, 0786-1628 losartan [Cozaar] 50 mg tablet 50 mg PO BID metformin 500 mg tablet 500 mg PO BIDWM metoprolol succinate 25 mg tablet extended release 24 hr 12.5 mg PO DAILY olanzapine 10 mg tablet 10 mg PO Q8H olanzapine 10 mg recon soln 10 mg IM .q4hr PRN (Reason: delerium) Rx Instructions: administer doses at least 2 - 4 hours apart not to exceed 30 mg /24 hrs pantoprazole 20 mg tablet,delayed release (DR/EC) 20 mg PO DAILY polyethylene glycol 3350 [Miralax] 17 gram/dose powder 17 g PO BID PRN (Reason: constipation) potassium chloride 10 mEq tablet,ER particles/crystals 10 meq PO DAILY senna 8.6 mg capsule 8.6 mg PO DAILY trazodone 50 mg tablet 50 mg PO HS Rexulti 0.5 mg tablet 0.5 mg PO .q12hr Date of admission: 07/15/24 01:08 Primary Care Provider: AnkurShemar Admitting Provider: Jovanna Unger Attending physician on admission: Jovanna Unger Condition: Stable
== END 2024-07-19 14:20 | DRG 193 ==
LOC: ANHED 07-15 00:04 → ANH2MED 07-17 15:15 → ANHIMU 07-21 14:50
PROVIDERS: Family Medicine; Admitting Provider Internal Medicine; Emergency Provider Emergency Medicine; PCP Family Medicine; Visit Provider Family Medicine
DX: J18.9 Pneumonia, unspecified organism (principal); J96.01 Acute respiratory failure with hypoxia; Z68.42 Body mass index [BMI] 45.0-49.9, adult; J69.0 Pneumonitis due to inhalation of food and vomit; J39.8 Other specified diseases of upper respiratory tract; G20.A1 Parkinson's disease without dyskinesia, without mention of fluctuations; I10 Essential (primary) hypertension; E66.01 Morbid (severe) obesity due to excess calories; G47.33 Obstructive sleep apnea (adult) (pediatric); F31.9 Bipolar disorder, unspecified
CPT/HCPCS: 36415; 36600; 71045; 71260; 74177; 80048; 80053; 80178; 80202; 82805; 82948; 83605; 83735; 83880; 84484; 85018; 85025; 85027; 85610; 85730; 87040; 87635; 87637; 87641; 92610; 93005; 94002; 94640; 96361; 96365; 96366; 96367; 97166; 99285; A9270; J0692; J1650; J1836; J2359; J3370; J7030; J7042; Q9967